=== PATIENT | female | born 1935 | race Caucasian/White ===

== ENCOUNTER 2019-05-05 03:50 | Inpatient (IN) | payer MEDICARE, OTHER ==
[~2019-05-05] VITALS: Ht 170.2 cm; Wt 80.0 kg
[~2019-05-05 03:50] MED LIST: AMLO2.5T78 PO; LEVE500T8 PO; LOSA25TA12 PO; METF-849 PO; SIMV5TAB14 PO
[2019-05-05] MEDS ORDERED: IOHEXOL 100 ML ONE (03:59)
[2019-05-05] MEDS ORDERED: SOD CHLORIDE 0.9% 100 ML ONE (03:59)
--- NOTE | 2019-05-05 04:06 | STROKE ---
Date/Time of Note Date/Time of Note DATE: 05/05/19 TIME: 04:01 Patient Information General Patient location: emergency Arrival Date 05/05/19 Age 83 Gender female Weight 80 kg Vital Signs Vital Signs Vital Signs Date Temp Pulse Resp B/P (MAP) Pulse Ox O2 O2 Flow FiO2 Time Delivery Rate 05/05/19 98.6 69 19 181/88 99 03:56 (119) Patient History Past Medical History Diabetes, Hypertension, Hypercholesterolemia, Seizure Current Medications Allergies: Coded Allergies: Penicillins (Verified Allergy, Unknown, 02/27/15) ciprofloxacin (Verified Allergy, Unknown, 02/27/15) History & Physical History of Present Illness 83 yo F with history of HTN, HL, DB, resides at a long-term, who was LKW 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 Symptoms had improved after CT studies. Review of Systems All Other Systems: Reviewed and Negative NIH Stroke Scale NIH Stroke Scale [id number] l4d LOC Questions: Zaidj6o OC Commands: Atdpd3c Gaze: Oiked5g Bkovh8c alsy: Hxcbc9s rm - Left: Tkwig2s ight: Yepya0x eft: Gkepu1f ight: Caxuk9u Bfakc5o Pzvst1k Ldamo9x fzhj1Zj Dysarthria: Acmze6k ction and Pruhb0l 4Bd Total Score: Rgfgt1u Date/Time Recorded DATE: 05/05/19 TIME: 04:01 Submitted By Olman Tanner [email or web address] Imaging Review Imaging Reviewed: Yes Date/Time Imaging Reviewed DATE: 05/05/19 TIME: 04:01 Imaging Findings no acute processes on CT t-PA Administration Recommendation: No Weight 80 kg Recommedation submitted by Olman Tanner Reason t-PA not Recommended outside time window t-PA Not Recommended Date/Time 05/05/19 4:00 AM Recommendations Impression Diagnosis 83 yo F with htn, hl, db, seizure disorder, LKW 11p on 05/04 and subsequently found with right facial droop and expressive aphasia. Symptoms had improved after returning from CT. NIHSS was 5 and CTH negative for acute processes. TPA was considered but not recommended given that the patient presented outside the eligibility window. Of note, the patient had a similar presentation in the last several months and was presumed TIA. Differential for her encephalopathy includes seizure, toxic/metabolic. Recommendation 1) full medical workup to evaluate for other provoking causes (ie infection including UA, metabolic derangement). 2) Neurology consult to assist with seizure history (per ER provider she is not on AEDs) and consideration for empiric anti-seizure medication. 3) MRI Brain to rule out stroke if symptoms do not improve back to baseline or if no clear provoking causes can be determined. [id number] Diagnostic Labs: Exotp6b Lipid Proile Hgb A1C CBC w/Diff Coags Urinaysis Urine Drug Screen [id number] Therapy: [address] Physical Therapy Speech Therapy Occupational [id number] Recommendations: [address] Bedside Swallow Evaluation Pnumatic Compression Devices OLMAN TANNER MD May 05, 2019 04:06
--- NOTE | 2019-05-05 05:51 | ERD ---
ER Documentation Chief Complaint Chief Complaint BIB R39 FROM [facility]. FACIAL DROOP, APHASIC. HPI This is an 83-year-old female brought in from [facility]. She has facial droop and was a phasic. Last known well time was 11 when she went to bed. She woke up to 130 to go the bathroom was noted to have these findings. Patient is very combative here. According to SNF, patient has had a history of TIA 3 weeks ago. ROS All systems reviewed and are negative except as per history of present illness. Medications Home Meds Reported Medications Simvastatin* (Simvastatin*) 5 Mg Tablet, 5 MG PO HS, TAB 02/27/15 Metformin* (Glucophage*) 500 Mg Tab, 500 MG PO WITH MEALS, TAB 02/27/15 Losartan Potassium* (Losartan Potassium*) 25 Mg Tablet, 25 MG PO DAILY, TAB 02/27/15 Levetiracetam* (Levetiracetam*) 500 Mg Tablet, 500 MG PO BID, TAB 02/27/15 Amlodipine Besylate* (Amlodipine Besylate*) 2.5 Mg Tablet, 2.5 MG PO DAILY, TAB 02/27/15 Allergies Allergies: Coded Allergies: Penicillins (Verified Allergy, Unknown, 02/27/15) ciprofloxacin (Verified Allergy, Unknown, 02/27/15) PMhx/Soc History of Surgery: Yes (Brain surgery Benign tumor 2008) Anesthesia Reaction: Yes Hx Neurological Disorder: No Hx Respiratory Disorders: No Hx Cardiac Disorders: Yes (HTN, Hyperlipdemia, TIA 04/2019) Hx Psychiatric Problems: No Hx Miscellaneous Medical Probl: Yes (Thalassemia) Hx Alcohol Use: No Hx Substance Use: No Hx Tobacco Use: No Smoking Status: Never smoker Physical Exam Vitals Vital Signs Date Temp Pulse Resp B/P (MAP) Pulse Ox O2 O2 Flow FiO2 Time Delivery Rate 05/05/19 66 19 160/73 99 Room Air 04:36 (102) 05/05/19 Nasal 2 04:16 Cannula 05/05/19 98.6 69 19 181/88 99 03:56 (119) Physical Exam Const: No acute distress Head: Atraumatic Eyes: Normal Conjunctiva ENT: Normal External Ears, Nose and Mouth. Neck: Full range of motion. No meningismus. Resp: Clear to auscultation bilaterally Cardio: Regular rate and rhythm, no murmurs Abd: Soft, non tender, non distended. Normal bowel sounds Skin: No petechiae or rashes Back: No midline or flank tenderness Ext: No cyanosis, or edema Neur: Awake and alert Psych: Normal Mood and Affect Result Diagram: 05/05/19 0413 05/05/19 0413 Results 24 hrs Laboratory Tests Test 05/05/19 04:13 White Blood Count 7.1 10^3/ul Red Blood Count 5.23 10^6/ul Hemoglobin 10.8 g/dl Hematocrit 35.1 % Mean Corpuscular Volume 67.1 fl Mean Corpuscular Hemoglobin 20.7 pg Mean Corpuscular Hemoglobin Concent 30.8 g/dl Red Cell Distribution Width 15.4 % Platelet Count 333 10^3/UL Mean Platelet Volume 9.2 fl Immature Granulocytes % 0.400 % Neutrophils % 57.1 % Lymphocytes % 29.5 % Monocytes % 8.4 % Eosinophils % 3.5 % Basophils % 1.1 % Nucleated Red Blood Cells % 0.0 /100WBC Immature Granulocytes # 0.030 10^3/ul Neutrophils # 4.1 10^3/ul Lymphocytes # 2.1 10^3/ul Monocytes # 0.6 10^3/ul Eosinophils # 0.3 10^3/ul Basophils # 0.1 10^3/ul Nucleated Red Blood Cells # 0.0 10^3/ul Prothrombin Time 11.9 Sec Prothrombin Time Ratio 0.9 INR International Normalized Ratio 0.87 Activated Partial Thromboplast Time 28.3 Sec Sodium Level 142 mmol/L Potassium Level 4.5 mmol/L Chloride Level 107 mmol/L Carbon Dioxide Level 25 mmol/L Anion Gap 10 Blood Urea Nitrogen 16 mg/dl Creatinine 0.74 mg/dl Est Glomerular Filtrat Rate mL/min mL/min Glucose Level 169 mg/dl Hemoglobin A1c 6.8 % Calcium Level 9.4 mg/dl Creatine Kinase 33 IU/L Creatine Kinase Index 0.8 Creatinine Kinase MB (Mass) 0.28 ng/ml Troponin I < 0.012 ng/ml Triglycerides Level 158 mg/dl Cholesterol Level 158 mg/dl LDL Cholesterol, Calculated 73 mg/dl HDL Cholesterol 53 mg/dl Cholesterol/HDL Ratio 2.9 RATIO Ethyl Alcohol Level < 10.0 mg/dl Current Medications Medications Dose Sig/Xenia Start Time Status Last (Trade) Ordered Route PRN Stop Time Admin Dose Reason Admin Ondansetron 4 mg ER BRIDGE 05/05/19 HCl (Zofran PRN IV 06:00 Inj) NAUSEA/VOMITI 05/06/19 05:59 NG 650 mg ER BRIDGE 05/05/19 Acetaminophen PRN PO 06:00 (Tylenol .MILD PAIN 05/06/19 05:59 Tab) 1-3 OR TEMP Procedures/MDM EKG: Rate/Rhythm: [Normal Sinus Rhythm] QRS, ST, T-waves: [No changes consistent w/ acute ischemia] Impression: [No evidence of ischemia or arrhythmia]. . Chest X-ray 1V Interpreted by me: Soft Tissue: No acute abnormalities Bones: No acute abnormalities Mediastinum/Cardiac Silhouette/Lungs: [No acute abnormalities] CT head and angiogram negative. Medical decision makin female who has now what looks to be TIA as her symptoms have completely resolved. Patient will be admitted to Dr. Hsu who is on-call. Departure Diagnosis: Primary Impression: TIA (transient ischemic attack) Condition: Serious JYOTI JENNINGS May 05, 2019 05:51
[2019-05-05] MEDS ORDERED: ACETAMINOPHEN 325 MG TAB PO PRN (06:00)
[2019-05-05] MEDS ORDERED: ONDANSETRON 4 MG INJ IV PRN (06:00)
[2019-05-05 08:30] VITALS: BP 158/71; PULSE 65; RESP 18
[2019-05-05] MEDS ORDERED: AMLO5TAB4 PO (08:33)
[2019-05-05] MEDS ORDERED: ACET-2047 PO (08:33)
[2019-05-05] MEDS ORDERED: ATOR10TA65 PO (08:33)
[2019-05-05] MEDS ORDERED: MULTI PO (08:33)
[2019-05-05] MEDS ORDERED: ASPI-903 PO (08:33)
[2019-05-05] MEDS ORDERED: SS SC (08:33)
[2019-05-05] MEDS ORDERED: LOSA100T15 PO (08:33)
[2019-05-05] MEDS ORDERED: SENN-120 PO (08:33)
[2019-05-05] MEDS ORDERED: LEVE500T8 PO (08:33)
[2019-05-05] MEDS ORDERED: GLIP5TAB13 PO (08:33)
[2019-05-05] MEDS ORDERED: ATEN50TA PO (08:33)
[2019-05-05] MEDS ORDERED: DOCU-159 PO (08:33)
[2019-05-05] MEDS ORDERED: METF-730 PO (08:33)
[2019-05-05] MEDS ORDERED: ZOLP5TAB PO (08:33)
[2019-05-05 09:20] VITALS: Ht 170.2 cm; Wt 80.0 kg
[2019-05-05 09:40] VITALS: PULSE 65
[2019-05-05 12:00] VITALS: BP 166/70; PULSE 67; PULSE 68; PULSE 69; RESP 17
[2019-05-05] MEDS ORDERED: DEXTROSE 50% 50 ML SYRINGE IV PRN ×2 (12:00)
[2019-05-05] MEDS ORDERED: ZOLPIDEM 5 MG TAB PO PRN (12:00)
[2019-05-05] MEDS ORDERED: GLUCOSE GEL 15 GRAM TUBE BUCCAL PRN (12:00)
[2019-05-05] MEDS ORDERED: GLUCAGON 1 MG INJ IM PRN (12:00)
[2019-05-05] MEDS ORDERED: GLUCOSE GEL 15 GRAM TUBE PO PRN ×2 (12:00)
--- NOTE | 2019-05-05 12:30 | HP ---
Date/Time of Note Date/Time of Note DATE: 05/05/19 TIME: 12:28 Assessment/Plan VTE Prophylaxis SCD applied (from Nsg): Yes Pharmacological prophylaxis: LMWH Lines/Catheters IV Catheter Type (from Nrsg): Saline Lock Assessment/Plan Assessment/Plan -TIA versus seizure. Rule out acute stroke. CT of the brain is negative for acute stroke. Will obtain MRI of the brain. is asked to see patient in neurology consultation. Continue aspirin and Keppra. -Hypertension, continue Cozaar, Norvasc and atenolol. -Hyperlipidemia, continue statin. -Thalassemia -Hearing impairment -Right breast mass, patient is followed with Dr. Kaden Wilcox with recommendation for a right breast mass biopsy. Further recommendations based on clinical course. Plan of care discussed with Dr. Young. Result Diagram: 05/05/19 0413 05/05/19 0413 Results 24hrs Laboratory Tests Test 05/05/19 04:13 05/05/19 12:17 White Blood Count 7.1 Red Blood Count 5.23 Hemoglobin 10.8 L Hematocrit 35.1 L Mean Corpuscular Volume 67.1 L Mean Corpuscular Hemoglobin 20.7 L Mean Corpuscular Hemoglobin Concent 30.8 L Red Cell Distribution Width 15.4 H Platelet Count 333 Mean Platelet Volume 9.2 Immature Granulocytes % 0.400 Neutrophils % 57.1 Lymphocytes % 29.5 Monocytes % 8.4 Eosinophils % 3.5 Basophils % 1.1 Nucleated Red Blood Cells % 0.0 Immature Granulocytes # 0.030 Neutrophils # 4.1 Lymphocytes # 2.1 Monocytes # 0.6 Eosinophils # 0.3 Basophils # 0.1 Nucleated Red Blood Cells # 0.0 Prothrombin Time 11.9 Prothrombin Time Ratio 0.9 INR International Normalized Ratio 0.87 Activated Partial Thromboplast Time 28.3 Sodium Level 142 Potassium Level 4.5 Chloride Level 107 Carbon Dioxide Level 25 Anion Gap 10 Blood Urea Nitrogen 16 Creatinine 0.74 Est Glomerular Filtrat Rate mL/min Glucose Level 169 Hemoglobin A1c 6.8 H Calcium Level 9.4 Creatine Kinase 33 Creatine Kinase Index 0.8 Creatinine Kinase MB (Mass) 0.28 Troponin I < 0.012 Triglycerides Level 158 H Cholesterol Level 158 LDL Cholesterol, Calculated 73 HDL Cholesterol 53 Cholesterol/HDL Ratio 2.9 Ethyl Alcohol Level < 10.0 H Bedside Glucose 186 HPI/ROS Admit Date/Time Admit Date/Time May 05, 2019 at 05:33 Hx of Present Illness The patient is 83-year-old female with history of surgery in 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 Patient was brought from [facility] for facial droop noticed and patient woke up at 1:30 AM patient went to bed at [address] of the brain which was negative for acute stroke. Patient's symptoms improved after returning from CT scan. Patient was evaluated by tele-neurologist Dr. Tanner. TPA was considered but not recommended given the patient presenting outside the eligibility window. Patient had TIA 3 weeks ago. Patient is admitted for further evaluation and management. During the examination patient is nonverbal and has hearing impairment however follows commands. No fever nausea vomiting, no shortness of breath and no chest pain were reported. ROS 12 point review of system is negative except for what mentioned in HPI PMH/Family/Social Past Medical History Medical History: high cholesterol, hypertension, other (History of TIA, thalassemia) Medications Current Medications Ondansetron HCl (Zofran Inj) 4 mg ER BRIDGE PRN IV NAUSEA/VOMITING; Start 05/05/19 at 06:00; Stop 05/06/19 at 05:59 Acetaminophen (Tylenol Tab) 650 mg ER BRIDGE PRN PO .MILD PAIN 1-3 OR TEMP; Start 05/05/19 at 06:00; Stop 05/06/19 at 05:59 Amlodipine Besylate (Norvasc) 5 mg BID PO ; Start 05/05/19 at 21:00 Aspirin (Aspirin) 81 mg DAILY PO ; Start 05/06/19 at 09:00 Atenolol (Tenormin) 50 mg BID PO ; Start 05/05/19 at 21:00 Atorvastatin Calcium (Lipitor) 10 mg QHS PO ; Start 05/05/19 at 21:00 Docusate Sodium (Colace) 100 mg BID PO ; Start 05/05/19 at 21:00 Levetiracetam (Keppra) 500 mg BID PO ; Start 05/05/19 at 21:00 Losartan Potassium (Cozaar) 100 mg DAILY PO ; Start 05/06/19 at 09:00 Multivitamins Therapeutic (Theragran) 1 tab DAILY PO ; Start 05/06/19 at 09:00 Senna (Senokot) 2 tab QHS PO ; Start 05/05/19 at 21:00 Zolpidem Tartrate (Ambien) 5 mg QHS PRN PO INSOMNIA; Start 05/05/19 at 12:00 Insulin Aspart (Novolog Insulin Pen) NOVOLOG *MILD* ALGORITHM WITH MEALS BEDTIME SC ; Start 05/05/19 at 11:50 Miscellaneous Information 1 ea NOTE XX ; Start 05/05/19 at 12:00 Glucose (Glutose) 15 gm Q15M PRN PO DECREASED GLUCOSE; Start 05/05/19 at 12:00 Glucose (Glutose) 22.5 gm Q15M PRN PO DECREASED GLUCOSE; Start 05/05/19 at 12:00 Dextrose (D50w Syringe) 25 ml Q15M PRN IV DECREASED GLUCOSE; Start 05/05/19 at 12:00 Dextrose (D50w Syringe) 50 ml Q15M PRN IV DECREASED GLUCOSE; Start 05/05/19 at 12:00 Glucagon (Glucagen) 1 mg Q15M PRN IM DECREASED GLUCOSE; Start 05/05/19 at 12:00 Glucose (Glutose) 15 gm Q15M PRN BUCCAL DECREASED GLUCOSE; Start 05/05/19 at 12:00 Coded Allergies: Penicillins (Verified Allergy, Unknown, 05/05/19) ciprofloxacin (Verified Allergy, Unknown, 05/05/19) Past Surgical History Past Surgical Hx: other (Status post brain surgery in 2008, status post right breast lumpectomy) Family History Significant Family History: no pertinent family hx Social History Alcohol Use: none Smoking Status: Never smoker Drug Use: none Exam/Review of Systems Vital Signs Vitals Vital Signs Date Temp Pulse Resp B/P (MAP) Pulse Ox O2 O2 Flow FiO2 Time Delivery Rate 05/05/19 98.2 68 17 166/70 95 12:00 (102) 05/05/19 Room Air 08:18 05/05/19 2 04:16 Exam Constitutional: alert, oriented Head: normocephalic ENMT: other (Hearing impairment) Neck: supple Respiratory: clear to auscultation Cardiovascular: regular rate and rhythm, other (Left Bundle branch block) Gastrointestinal: soft, non-tender Musculoskeletal: nl extremities to inspection Extremities: normal pulses Neurological: nl mental status, other (Expressive aphasia) Skin: nl TROY Sue May 05, 2019 12:30
[2019-05-05] MEDS: INSULIN ASPART [NOVOLOG] 3 ML PEN SC SCH ×3 (12:35→20:55)
--- NOTE | 2019-05-05 15:02 | CONSI ---
Assessment/Plan Assessment/Plan Assessment/Plan (Recall) 83 F c/ prior brain surgery NOS c/b residual aphasia and epilepsy...who presents for evaluation of transient L face weakness. The clinical picture is concerning for TIA/minor stroke vs. seizure w/ post- ictal paresis.. Recrudescence is a Dx of exclusion.. Head CT is notable for surgery sequelae.. CTA H/N is unrevealing. P: Await MRI brain for further characterization Agree w/ asa/lipitor daily for now.. Increase Keppra to 750mg bid for now Ativan iv prn prolonged seizure (> 5 min) Await UA/UDS Other medical management and supportive care per primary Will follow clinically Consultation Date/Type/Reason Admit Date/Time May 05, 2019 at 05:33 Type of Consult Neurology Reason for Consultation transient face weakness Requesting Provider: TROY SILVER Date/Time of Note DATE: 05/05/19 TIME: 14:56 Hx of Present Illness Patient is unable to contribute a Hx.. It is elsewhere noted: The patient is 83-year-old female with history of surgery in 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 P atient was brought from residential facility for facial droop noticed and patient woke up at 1:30 AM patient went to bed at [address] of the brain which was negative for acute stroke. Patient's symptoms improved after returning from CT scan. Patient was evaluated by tele-neurologist Dr. Tanner. TPA was considered but not recommended given the patient presenting outside the eligibility window. Patient had TIA 3 weeks ago. Patient is admitted for further evaluation and management. During the examination patient is nonverbal and has hearing impairment however follows commands. No fever nausea vomiting, no shortness of breath and no chest pain were reported. limited by dysphasia Objective Exam Vitals Vital Signs Date Temp Pulse Resp B/P (MAP) Pulse Ox O2 O2 Flow FiO2 Time Delivery Rate 05/05/19 69 12:00 05/05/19 98.2 17 166/70 95 12:00 (102) 05/05/19 Room Air 08:18 05/05/19 2 04:16 Exam PE: Gen Appearance: No Apparent Distress HEENT: Normocephalic Cardiovascular: Regular rate Lungs: Clear bilaterally Abdomen: Soft Extremities: Dry NE: The patient was alert. Language was notable for fluent dysphasia. Fund of knowledge was [place].. Pupils were equal and reactive to light. There was no afferent pupillary defect. Visual jones were normal. Funduscopic examination was limited. Extra-ocular movements were full. Ptosis was absent. There was no nystagmus. Facial sensation was normal. Face was symmetric with normal strength. Hearing was intact. Palate movements were normal. Neck strength was normal. There was normal tongue bulk and speed of movement. Tone was normal. Muscle bulk was normal. I did not see fasciculations. Arms and legs were strong. Vibration sensation was normal. Temperature and pinprick sensation was normal. Rapid alternating movements were normal. There was no dysmetria. There was no intention tremor. Gait was deferred due to bedrest. Arm and leg reflexes were symmetric. Williamson's sign was absent. Plantar responses were flexor. Results Result Diagram: 05/05/19 0413 05/05/19 0413 Results 24hrs Laboratory Tests Test 05/05/19 04:13 05/05/19 12:17 White Blood Count 7.1 Red Blood Count 5.23 Hemoglobin 10.8 L Hematocrit 35.1 L Mean Corpuscular Volume 67.1 L Mean Corpuscular Hemoglobin 20.7 L Mean Corpuscular Hemoglobin Concent 30.8 L Red Cell Distribution Width 15.4 H Platelet Count 333 Mean Platelet Volume 9.2 Immature Granulocytes % 0.400 Neutrophils % 57.1 Lymphocytes % 29.5 Monocytes % 8.4 Eosinophils % 3.5 Basophils % 1.1 Nucleated Red Blood Cells % 0.0 Immature Granulocytes # 0.030 Neutrophils # 4.1 Lymphocytes # 2.1 Monocytes # 0.6 Eosinophils # 0.3 Basophils # 0.1 Nucleated Red Blood Cells # 0.0 Prothrombin Time 11.9 Prothrombin Time Ratio 0.9 INR International Normalized Ratio 0.87 Activated Partial Thromboplast Time 28.3 Sodium Level 142 Potassium Level 4.5 Chloride Level 107 Carbon Dioxide Level 25 Anion Gap 10 Blood Urea Nitrogen 16 Creatinine 0.74 Est Glomerular Filtrat Rate mL/min Glucose Level 169 Hemoglobin A1c 6.8 H Calcium Level 9.4 Creatine Kinase 33 Creatine Kinase Index 0.8 Creatinine Kinase MB (Mass) 0.28 Troponin I < 0.012 Triglycerides Level 158 H Cholesterol Level 158 LDL Cholesterol, Calculated 73 HDL Cholesterol 53 Cholesterol/HDL Ratio 2.9 Ethyl Alcohol Level < 10.0 H Bedside Glucose 186 Past Medical History Medical History: high cholesterol, hypertension, other (History of TIA, thalassemia) Home Meds Reported Medications Sennosides* (Senna Lax*) 8.6 Mg Tablet, 2 TAB PO QHS, TAB 05/05/19 Multivitamins* (Theragran*) 1 Tab Tab, 1 TAB PO DAILY, TAB 05/05/19 Metformin HCl (Metformin HCl ER) 500 Mg [id number], 500 MG PO, TAB 05/05/19 Losartan Potassium* (Losartan Potassium*) 100 Mg Tablet, 100 MG PO DAILY, TAB 05/05/19 Atorvastatin Calcium (Atorvastatin Calcium) 10 Mg Tablet, 10 MG PO QHS, #30 TAB 05/05/19 Levetiracetam* (Levetiracetam*) 500 Mg Tablet, 500 MG PO BID, TAB 05/05/19 Insulin Human Regular (Novolin-R U-100) 100 Unit/Ml Soln, 0-12 UNITS SC PER SLID ING SCALE, EA 05/05/19 Glipizide* (Glipizide*) 5 Mg Tablet, 2.5 MG PO AC BREAKFAST BEDTIME, TAB 05/05/19 Docusate Sodium* (Docusate Sodium*) 100 Mg Capsule, 100 MG PO BID, #60 CAP 05/05/19 Atenolol* (Atenolol*) 50 Mg Tablet, 50 MG PO BID, #60 TAB 05/05/19 Aspirin* (Aspirin* Chew) 81 Mg Tab.chew, 81 MG PO DAILY, TAB.CHEW 05/05/19 Amlodipine Besylate* (Norvasc*) 5 Mg Tablet, 5 MG PO BID, TAB 05/05/19 Zolpidem Tartrate* (Ambien*) 5 Mg Tablet, 5 MG PO QHS PRN for INSOMNIA, #30 TAB 05/05/19 Acetaminophen* (Acetaminophen*) 650 Mg Tablet, 650 MG PO Q6H PRN for PAIN AND OR ELEVATED TEMP, #30 TAB 05/05/19 Discontinued Reported Medications Simvastatin* (Simvastatin*) 5 Mg Tablet, 5 MG PO HS, TAB 02/27/15 Metformin* (Glucophage*) 500 Mg Tab, 500 MG PO WITH MEALS, TAB 02/27/15 Losartan Potassium* (Losartan Potassium*) 25 Mg Tablet, 25 MG PO DAILY, TAB 02/27/15 Levetiracetam* (Levetiracetam*) 500 Mg Tablet, 500 MG PO BID, TAB 02/27/15 Amlodipine Besylate* (Amlodipine Besylate*) 2.5 Mg Tablet, 2.5 MG PO DAILY, TAB 02/27/15 Medications Current Medications Ondansetron HCl (Zofran Inj) 4 mg ER BRIDGE PRN IV NAUSEA/VOMITING; Start 05/05/19 at 06:00; Stop 05/06/19 at 05:59 Acetaminophen (Tylenol Tab) 650 mg ER BRIDGE PRN PO .MILD PAIN 1-3 OR TEMP; Start 05/05/19 at 06:00; Stop 05/06/19 at 05:59 Amlodipine Besylate (Norvasc) 5 mg BID PO ; Start 05/05/19 at 21:00 Aspirin (Aspirin) 81 mg DAILY PO ; Start 05/06/19 at 09:00 Atenolol (Tenormin) 50 mg BID PO ; Start 05/05/19 at 21:00 Atorvastatin Calcium (Lipitor) 10 mg QHS PO ; Start 05/05/19 at 21:00 Docusate Sodium (Colace) 100 mg BID PO ; Start 05/05/19 at 21:00 Levetiracetam (Keppra) 500 mg BID PO ; Start 05/05/19 at 21:00 Losartan Potassium (Cozaar) 100 mg DAILY PO ; Start 05/06/19 at 09:00 Multivitamins Therapeutic (Theragran) 1 tab DAILY PO ; Start 05/06/19 at 09:00 Senna (Senokot) 2 tab QHS PO ; Start 05/05/19 at 21:00 Zolpidem Tartrate (Ambien) 5 mg QHS PRN PO INSOMNIA; Start 05/05/19 at 12:00 Insulin Aspart (Novolog Insulin Pen) NOVOLOG *MILD* ALGORITHM WITH MEALS BEDTIME SC Last administered on 05/05/19at 12:35; Admin Dose 2 UNIT; Start 05/05/19 at 11:50 Miscellaneous Information 1 ea NOTE XX ; Start 05/05/19 at 12:00 Glucose (Glutose) 15 gm Q15M PRN PO DECREASED GLUCOSE; Start 05/05/19 at 12:00 Glucose (Glutose) 22.5 gm Q15M PRN PO DECREASED GLUCOSE; Start 05/05/19 at 12:00 Dextrose (D50w Syringe) 25 ml Q15M PRN IV DECREASED GLUCOSE; Start 05/05/19 at 12:00 Dextrose (D50w Syringe) 50 ml Q15M PRN IV DECREASED GLUCOSE; Start 05/05/19 at 12:00 Glucagon (Glucagen) 1 mg Q15M PRN IM DECREASED GLUCOSE; Start 05/05/19 at 12:00 Glucose (Glutose) 15 gm Q15M PRN BUCCAL DECREASED GLUCOSE; Start 05/05/19 at 12:00 Glipizide (Glucotrol) 2.5 mg AC BREAKFAST PO ; Start 05/06/19 at 07:25 Allergies: Coded Allergies: Penicillins (Verified Allergy, Unknown, 05/05/19) ciprofloxacin (Verified Allergy, Unknown, 05/05/19) Past Surgical History Past Surgical Hx: other (Status post brain surgery in 2008, status post right breast lumpectomy) Social History Alcohol Use: none Smoking Status: Never smoker Drug Use: none KAROL SANCHEZ May 05, 2019 15:02
[2019-05-05 16:00] VITALS: BP 170/70; PULSE 61; PULSE 67; RESP 21
[2019-05-05] MEDS: LEVETIRACETAM 750 MG TAB PO SCH (16:26)
[2019-05-05 20:00] VITALS: PULSE 69
[2019-05-05 20:19] VITALS: BP 166/80; PULSE 69; RESP 19
[2019-05-05] MEDS: SENNA TAB PO SCH (20:51)
[2019-05-05] MEDS: ATENOLOL 50 MG TAB PO SCH (20:52)
[2019-05-05] MEDS: ATORVASTATIN 10 MG TAB PO SCH (20:52)
[2019-05-05] MEDS: AMLODIPINE 5 MG TAB PO SCH (20:52)
[2019-05-05] MEDS: DOCUSATE SODIUM 100 MG CAP PO SCH (20:53)
[2019-05-05] MEDS ORDERED: LEVETIRACETAM 750 MG TAB PO SCH (21:00)
[2019-05-05] MEDS ORDERED: LEVETIRACETAM 500 MG TAB PO SCH (21:00)
[2019-05-06] VITALS (11 sets, daily range): BP systolic 121–148; BP diastolic 60–70; PULSE 62–80; RESP 18–19
[2019-05-06] MEDS: LEVETIRACETAM 750 MG TAB PO SCH ×3 (01:53→20:29)
[2019-05-06] MEDS: INSULIN ASPART [NOVOLOG] 3 ML PEN SC SCH ×4 (08:34→20:26)
[2019-05-06] MEDS: DOCUSATE SODIUM 100 MG CAP PO SCH ×2 (08:46→20:28)
[2019-05-06] MEDS: ASPIRIN 81 MG TAB PO SCH (08:46)
[2019-05-06] MEDS: AMLODIPINE 5 MG TAB PO SCH ×2 (08:47→20:28)
[2019-05-06] MEDS: MULTIVITAMINS THERAPEUTIC TAB PO SCH (08:47)
[2019-05-06] MEDS: ATENOLOL 50 MG TAB PO SCH ×2 (08:47→20:28)
[2019-05-06] MEDS: LOSARTAN 50 MG TAB PO SCH (08:47)
[2019-05-06] MEDS: glipiZIDE 5 MG TAB PO SCH (08:51)
--- NOTE | 2019-05-06 12:51 | PN ---
Date/Time of Note Date/Time of Note DATE: 05/06/19 TIME: 12:42 Assessment/Plan VTE Prophylaxis Risk score (from Nsg)>0 risk: 3 SCD applied (from Nsg): Yes Pharmacological prophylaxis: LMWH Lines/Catheters IV Catheter Type (from Nrsg): Peripheral IV Assessment/Plan Hospital Course Patient is awake alert, denies any pain no seizure reported per nursing staff, continue physical therapy. Assessment/Plan -TIA versus seizure. CT of the brain is negative for acute stroke. MRI of the brain is negative for acute stroke. is asked to see patient in neurology consultation. Continue aspirin and Keppra. -Hypertension, continue Cozaar, Norvasc and atenolol. -Hyperlipidemia, continue statin. -Thalassemia -Hearing impairment -Right breast mass, patient underwent recent ultrasound at [facility] with no evidence for breast mass per Dr Barrett. Further recommendations based on clinical course. Plan of care discussed with Dr. Young. Result Diagram: 05/06/19 0558 05/06/19 0558 Results 24hrs Laboratory Tests Test 05/05/19 20:20 05/06/19 05:58 05/06/19 08:27 05/06/19 10:45 Bedside Glucose 200 154 White Blood Count 6.3 Red Blood Count 5.22 Hemoglobin 10.6 L Hematocrit 34.9 L Mean Corpuscular 66.9 L Volume Mean Corpuscular 20.3 L Hemoglobin Mean Corpuscular 30.4 L Hemoglobin Concent Red Cell 15.7 H Distribution Width Platelet Count 333 Mean Platelet Volume 9.7 Immature 0.500 H Granulocytes % Neutrophils % 57.7 Lymphocytes % 30.4 Monocytes % 8.4 Eosinophils % 2.2 Basophils % 0.8 Nucleated Red Blood 0.0 Cells % Immature 0.030 Granulocytes # Neutrophils # 3.6 Lymphocytes # 1.9 Monocytes # 0.5 Eosinophils # 0.1 Basophils # 0.1 Nucleated Red Blood 0.0 Cells # Sodium Level 139 Potassium Level 4.0 Chloride Level 102 Carbon Dioxide Level 26 Anion Gap 11 Blood Urea Nitrogen 13 Creatinine 0.68 Est Glomerular Filtrat Rate mL/min Glucose Level 140 Calcium Level 8.4 Prothrombin Time 12.7 Prothrombin Time 1.0 Ratio INR International 0.94 Normalized Ratio Test 05/06/19 12:06 Bedside Glucose 274 H Exam/Review of Systems Exam Vitals Vital Signs Date Temp Pulse Resp B/P (MAP) Pulse Ox O2 O2 Flow FiO2 Time Delivery Rate 05/06/19 63 12:13 05/06/19 97.8 18 127/60 98 11:59 (82) 05/05/19 Room Air 08:18 05/05/19 2 04:16 Intake and Output 05/05/19 05/05/19 05/06/19 1515:00 23:00 07:00 IntakeIntake Total 480 ml 300 ml BalanceBalance 480 ml 300 ml Exam Constitutional: alert, oriented Head: normocephalic ENMT: other (Hearing impairment) Neck: supple Respiratory: clear to auscultation Cardiovascular: regular rate and rhythm, other (Left Bundle branch block) Gastrointestinal: soft, non-tender Musculoskeletal: nl extremities to inspection Extremities: normal pulses Neurological: nl mental status, other (Expressive aphasia) Skin: nl turgor Results Results 24hrs Laboratory Tests Test 05/05/19 20:20 05/06/19 05:58 05/06/19 08:27 05/06/19 10:45 Bedside Glucose 200 154 White Blood Count 6.3 Red Blood Count 5.22 Hemoglobin 10.6 L Hematocrit 34.9 L Mean Corpuscular 66.9 L Volume Mean Corpuscular 20.3 L Hemoglobin Mean Corpuscular 30.4 L Hemoglobin Concent Red Cell 15.7 H Distribution Width Platelet Count 333 Mean Platelet Volume 9.7 Immature 0.500 H Granulocytes % Neutrophils % 57.7 Lymphocytes % 30.4 Monocytes % 8.4 Eosinophils % 2.2 Basophils % 0.8 Nucleated Red Blood 0.0 Cells % Immature 0.030 Granulocytes # Neutrophils # 3.6 Lymphocytes # 1.9 Monocytes # 0.5 Eosinophils # 0.1 Basophils # 0.1 Nucleated Red Blood 0.0 Cells # Sodium Level 139 Potassium Level 4.0 Chloride Level 102 Carbon Dioxide Level 26 Anion Gap 11 Blood Urea Nitrogen 13 Creatinine 0.68 Est Glomerular Filtrat Rate mL/min Glucose Level 140 Calcium Level 8.4 Prothrombin Time 12.7 Prothrombin Time 1.0 Ratio INR International 0.94 Normalized Ratio Test 05/06/19 12:06 Bedside Glucose 274 H Medications Medication Current Medications Amlodipine Besylate (Norvasc) 5 mg BID PO Last administered on 05/06/19at 08:47; Admin Dose 5 MG; Start 05/05/19 at 21:00 Aspirin (Aspirin) 81 mg DAILY PO Last administered on 05/06/19at 08:46; Admin Dose 81 MG; Start 05/06/19 at 09:00 Atenolol (Tenormin) 50 mg BID PO Last administered on 05/06/19at 08:47; Admin Dose 50 MG; Start 05/05/19 at 21:00 Atorvastatin Calcium (Lipitor) 10 mg QHS PO Last administered on 05/05/19at 20:52; Admin Dose 10 MG; Start 05/05/19 at 21:00 Docusate Sodium (Colace) 100 mg BID PO Last administered on 05/06/19 08:46; Admin Dose 100 MG; Start 05/05/19 at 21:00 Losartan Potassium (Cozaar) 100 mg DAILY PO Last administered on 05/06/19 08:47; Admin Dose 100 MG; Start 05/06/19 at 09:00 Multivitamins Therapeutic (Theragran) 1 tab DAILY PO Last administered on 05/06/19 08:47; Admin Dose 1 TAB; Start 05/06/19 at 09:00 Senna (Senokot) 2 tab QHS PO Last administered on 05/05/19at 20:51; Admin Dose 2 TAB; Start 05/05/19 at 21:00 Zolpidem Tartrate (Ambien) 5 mg QHS PRN PO INSOMNIA; Start 05/05/19 at 12:00 Insulin Aspart (Novolog Insulin Pen) NOVOLOG *MILD* ALGORITHM WITH MEALS BEDTIME SC Last administered on 05/06/19at 12:14; Admin Dose 4 UNIT; Start 05/05/19 at 11:50 Miscellaneous Information 1 ea NOTE XX ; Start 05/05/19 at 12:00 Glucose (Glutose) 15 gm Q15M PRN PO DECREASED GLUCOSE; Start 05/05/19 at 12:00 Glucose (Glutose) 22.5 gm Q15M PRN PO DECREASED GLUCOSE; Start 05/05/19 at 12:00 Dextrose (D50w Syringe) 25 ml Q15M PRN IV DECREASED GLUCOSE; Start 05/05/19 at 12:00 Dextrose (D50w Syringe) 50 ml Q15M PRN IV DECREASED GLUCOSE; Start 05/05/19 at 12:00 Glucagon (Glucagen) 1 mg Q15M PRN IM DECREASED GLUCOSE; Start 05/05/19 at 12:00 Glucose (Glutose) 15 gm Q15M PRN BUCCAL DECREASED GLUCOSE; Start 05/05/19 at 12:00 Glipizide (Glucotrol) 2.5 mg AC BREAKFAST PO Last administered on 05/06/19at 08:51; Admin Dose 2.5 MG; Start 05/06/19 at 07:25 Levetiracetam (Keppra) 750 mg BID PO Last administered on 05/06/19at 08:47; Admin Dose 750 MG; Start 05/05/19 at 17:00 TROY SILVER May 06, 2019 12:51
--- NOTE | 2019-05-06 13:22 | CONS ---
Assessment/Plan Assessment/Plan Assessment/Plan (Recall) 83 F c/ prior brain surgery NOS c/b residual aphasia and epilepsy...who presents for evaluation of transient L face weakness. The clinical picture could be consistent w/ post-ictal paresis.. Recrudescence is an alternative consideration.. MRI brain is reassuringly without obvious acute intracranial pathology. CTA H/N is unrevealing. P: Await UA/UDS Agree w/ asa/lipitor daily Continue increased Keppra indefinitely: 750mg bid Ativan iv prn prolonged seizure (> 5 min) Other medical management and supportive care per primary Consultation Date/Type/Reason Admit Date/Time May 06, 2019 at 09:44 Type of Consult Neurology Reason for Consultation transient face weakness Requesting Provider: TROY SILVER Date/Time of Note DATE: 05/06/19 TIME: 13:20 24 HR Interval Summary Free Text/Dictation s/p MRI brain Exam/Review of Systems Exam Vitals Vital Signs Date Temp Pulse Resp B/P (MAP) Pulse Ox O2 O2 Flow FiO2 Time Delivery Rate 05/06/19 63 12:13 05/06/19 97.8 18 127/60 98 11:59 (82) 05/05/19 Room Air 08:18 05/05/19 2 04:16 Intake and Output 05/05/19 05/05/19 05/06/19 1515:00 23:00 07:00 IntakeIntake Total 480 ml 300 ml BalanceBalance 480 ml 300 ml Results Result Diagram: 05/06/19 0558 05/06/19 0558 Results 24hrs Laboratory Tests Test 05/05/19 20:20 05/06/19 05:58 05/06/19 08:27 05/06/19 10:45 Bedside Glucose 200 154 White Blood Count 6.3 Red Blood Count 5.22 Hemoglobin 10.6 L Hematocrit 34.9 L Mean Corpuscular 66.9 L Volume Mean Corpuscular 20.3 L Hemoglobin Mean Corpuscular 30.4 L Hemoglobin Concent Red Cell 15.7 H Distribution Width Platelet Count 333 Mean Platelet Volume 9.7 Immature 0.500 H Granulocytes % Neutrophils % 57.7 Lymphocytes % 30.4 Monocytes % 8.4 Eosinophils % 2.2 Basophils % 0.8 Nucleated Red Blood 0.0 Cells % Immature 0.030 Granulocytes # Neutrophils # 3.6 Lymphocytes # 1.9 Monocytes # 0.5 Eosinophils # 0.1 Basophils # 0.1 Nucleated Red Blood 0.0 Cells # Sodium Level 139 Potassium Level 4.0 Chloride Level 102 Carbon Dioxide Level 26 Anion Gap 11 Blood Urea Nitrogen 13 Creatinine 0.68 Est Glomerular Filtrat Rate mL/min Glucose Level 140 Calcium Level 8.4 Prothrombin Time 12.7 Prothrombin Time 1.0 Ratio INR International 0.94 Normalized Ratio Test 05/06/19 12:06 Bedside Glucose 274 H Medications Medication Current Medications Amlodipine Besylate (Norvasc) 5 mg BID PO Last administered on 05/06/19 08:47; Admin Dose 5 MG; Start 05/05/19 at 21:00 Aspirin (Aspirin) 81 mg DAILY PO Last administered on 05/06/19 08:46; Admin Dose 81 MG; Start 05/06/19 at 09:00 Atenolol (Tenormin) 50 mg BID PO Last administered on 05/06/19 08:47; Admin Dose 50 MG; Start 05/05/19 at 21:00 Atorvastatin Calcium (Lipitor) 10 mg QHS PO Last administered on 05/05/19 20:52; Admin Dose 10 MG; Start 05/05/19 at 21:00 Docusate Sodium (Colace) 100 mg BID PO Last administered on 05/06/19 08:46; Admin Dose 100 MG; Start 05/05/19 at 21:00 Losartan Potassium (Cozaar) 100 mg DAILY PO Last administered on 05/06/19 08:47; Admin Dose 100 MG; Start 05/06/19 at 09:00 Multivitamins Therapeutic (Theragran) 1 tab DAILY PO Last administered on 05/06/19 08:47; Admin Dose 1 TAB; Start 05/06/19 at 09:00 Senna (Senokot) 2 tab QHS PO Last administered on 05/05/19 20:51; Admin Dose 2 TAB; Start 05/05/19 at 21:00 Zolpidem Tartrate (Ambien) 5 mg QHS PRN PO INSOMNIA; Start 05/05/19 at 12:00 Insulin Aspart (Novolog Insulin Pen) NOVOLOG *MILD* ALGORITHM WITH MEALS BEDTIME SC Last administered on 05/06/19at 12:14; Admin Dose 4 UNIT; Start 05/05/19 at 11:50 Miscellaneous Information 1 ea NOTE XX ; Start 05/05/19 at 12:00 Glucose (Glutose) 15 gm Q15M PRN PO DECREASED GLUCOSE; Start 05/05/19 at 12:00 Glucose (Glutose) 22.5 gm Q15M PRN PO DECREASED GLUCOSE; Start 05/05/19 at 1 2:00 Dextrose (D50w Syringe) 25 ml Q15M PRN IV DECREASED GLUCOSE; Start 05/05/19 at 12:00 Dextrose (D50w Syringe) 50 ml Q15M PRN IV DECREASED GLUCOSE; Start 05/05/19 at 12:00 Glucagon (Glucagen) 1 mg Q15M PRN IM DECREASED GLUCOSE; Start 05/05/19 at 12:00 Glucose (Glutose) 15 gm Q15M PRN BUCCAL DECREASED GLUCOSE; Start 05/05/19 at 12:00 Glipizide (Glucotrol) 2.5 mg AC BREAKFAST PO Last administered on 05/06/19at 08:51; Admin Dose 2.5 MG; Start 05/06/19 at 07:25 Levetiracetam (Keppra) 750 mg BID PO Last administered on 05/06/19at 08:47; Admin Dose 750 MG; Start 05/05/19 at 17:00 KAROL SANCHEZ May 06, 2019 13:22
[2019-05-06] MEDS: ATORVASTATIN 10 MG TAB PO SCH (20:27)
[2019-05-06] MEDS: SENNA TAB PO SCH (20:29)
[2019-05-07] VITALS (11 sets, daily range): BP systolic 117–152; BP diastolic 59–70; PULSE 53–71; RESP 18–20
[2019-05-07] MEDS: LEVETIRACETAM 750 MG TAB PO SCH ×2 (08:12→20:53)
[2019-05-07] MEDS: DOCUSATE SODIUM 100 MG CAP PO SCH ×2 (08:12→20:53)
[2019-05-07] MEDS: glipiZIDE 5 MG TAB PO SCH (08:12)
[2019-05-07] MEDS: MULTIVITAMINS THERAPEUTIC TAB PO SCH (08:12)
[2019-05-07] MEDS: AMLODIPINE 5 MG TAB PO SCH ×2 (08:12→20:55)
[2019-05-07] MEDS: LOSARTAN 50 MG TAB PO SCH (08:13)
[2019-05-07] MEDS: ASPIRIN 81 MG TAB PO SCH (08:13)
[2019-05-07] MEDS: ATENOLOL 50 MG TAB PO SCH ×2 (08:14→20:55)
[2019-05-07] MEDS: INSULIN ASPART [NOVOLOG] 3 ML PEN SC SCH ×4 (08:14→20:57)
[2019-05-07] MEDS ORDERED: PHENYTOIN 1,250 MG in SOD CHLORIDE 0.9% 150 ML IV STA (11:17)
--- NOTE | 2019-05-07 12:57 | CONS ---
Assessment/Plan Assessment/Plan Assessment/Plan (Recall) 83 F c/ prior brain surgery NOS c/b residual aphasia and epilepsy...who presents for evaluation of transient L face weakness. The clinical picture is consistent w/ post-ictal paresis.. MRI brain is reassuringly without obvious acute intracranial pathology. CTA H/N is unrevealing. P: Add LFTs; Start Dilantin, to be titrated as needed to goal level 10-20 Continue increased Keppra indefinitely: 750mg bid Ativan iv prn prolonged seizure (> 5 min) OK to continue asa/lipitor for secondary stroke prevention Other medical management and supportive care per primary Consultation Date/Type/Reason Admit Date/Time May 06, 2019 at 09:44 Type of Consult Neurology Reason for Consultation transient face weakness Requesting Provider: TROY SILVER Date/Time of Note DATE: 05/07/19 TIME: 12:56 24 HR Interval Summary Free Text/Dictation Episodic face weakness noted Exam/Review of Systems Exam Vitals Vital Signs Date Temp Pulse Resp B/P (MAP) Pulse Ox O2 O2 Flow FiO2 Time Delivery Rate 05/07/19 97.9 62 20 152/70 95 Room Air 11:25 (97) 05/05/19 2 04:16 Intake and Output 05/06/19 05/06/19 05/07/19 1515:00 23:00 07:00 IntakeIntake Total 720 ml 350 ml BalanceBalance 720 ml 350 ml Results Result Diagram: 05/06/19 0558 05/06/19 0558 Results 24hrs Laboratory Tests Test 05/06/19 17:37 05/06/19 20:25 05/07/19 08:07 Bedside Glucose 119 172 176 Medications Medication Current Medications Amlodipine Besylate (Norvasc) 5 mg BID PO Last administered on 05/07/19at 08:12; Admin Dose 5 MG; Start 05/05/19 at 21:00 Aspirin (Aspirin) 81 mg DAILY PO Last administered on 05/07/19at 08:13; Admin Dose 81 MG; Start 05/06/19 at 09:00 Atenolol (Tenormin) 50 mg BID PO Last administered on 05/07/19at 08:14; Admin Dose 50 MG; Start 05/05/19 at 21:00 Atorvastatin Calcium (Lipitor) 10 mg QHS PO Last administered on 05/06/19at 20:27; Admin Dose 10 MG; Start 05/05/19 at 21:00 Docusate Sodium (Colace) 100 mg BID PO Last administered on 05/07/19at 08:12; Admin Dose 100 MG; Start 05/05/19 at 21:00 Losartan Potassium (Cozaar) 100 mg DAILY PO Last administered on 05/07/19 08:13; Admin Dose 100 MG; Start 05/06/19 at 09:00 Multivitamins Therapeutic (Theragran) 1 tab DAILY PO Last administered on 05/07/19 08:12; Admin Dose 1 TAB; Start 05/06/19 at 09:00 Senna (Senokot) 2 tab QHS PO Last administered on 05/06/19 20:29; Admin Dose 2 TAB; Start 05/05/19 at 21:00 Zolpidem Tartrate (Ambien) 5 mg QHS PRN PO INSOMNIA; Start 05/05/19 at 12:00 Insulin Aspart (Novolog Insulin Pen) NOVOLOG *MILD* ALGORITHM WITH MEALS BED TIME SC Last administered on 05/07/19at 08:14; Admin Dose 1 UNIT; Start 05/05/19 at 11:50 Miscellaneous Information 1 ea NOTE XX ; Start 05/05/19 at 12:00 Glucose (Glutose) 15 gm Q15M PRN PO DECREASED GLUCOSE; Start 05/05/19 at 12:00 Glucose (Glutose) 22.5 gm Q15M PRN PO DECREASED GLUCOSE; Start 05/05/19 at 12:00 Dextrose (D50w Syringe) 25 ml Q15M PRN IV DECREASED GLUCOSE; Start 05/05/19 at 12:00 Dextrose (D50w Syringe) 50 ml Q15M PRN IV DECREASED GLUCOSE; Start 05/05/19 at 12:00 Glucagon (Glucagen) 1 mg Q15M PRN IM DECREASED GLUCOSE; Start 05/05/19 at 12:00 Glucose (Glutose) 15 gm Q15M PRN BUCCAL DECREASED GLUCOSE; Start 05/05/19 at 12:00 Glipizide (Glucotrol) 2.5 mg AC BREAKFAST PO Last administered on 05/07/19at 08:12; Admin Dose 2.5 MG; Start 05/06/19 at 07:25 Levetiracetam (Keppra) 750 mg BID PO Last administered on 05/07/19at 08:12; Admin Dose 750 MG; Start 05/05/19 at 17:00 Phenytoin (Dilantin) 100 mg TID PO ; Start 05/07/19 at 21:00 KAROL SANCHEZ 19, 2019 12:57
--- NOTE | 2019-05-07 16:01 | PN ---
Date/Time of Note Date/Time of Note DATE: 05/07/19 TIME: 15:44 Assessment/Plan VTE Prophylaxis Risk score (from Ns)>0 risk: 3 SCD applied (from Nsg): Yes Pharmacological prophylaxis: other Lines/Catheters IV C[facility] Type (from [facility]): Peripheral IV Assessment/Plan Hospital Course Patient with breakthrough seizures, started on IV Dilantin today, patient's condition plan of care discussed with Dr. Granda, neurology consult is appreciated. Continue telemetry monitoring, seizure precautions. Assessment/Plan -Epilepsy, continue p.o. Keppra at increased dose, IV Dilantin, Ativan as needed -Post ictal paresis. CT of the brain is negative for acute stroke. MRI of the brain is negative for acute stroke. is following in neurology consultation. Continue aspirin and Keppra. -Hypertension, continue Cozaar, Norvasc and atenolol. -Hyperlipidemia, continue statin. -Thalassemia -Hearing impairment -History of brain surgery with residual aphasia and epilepsy -Right breast mass, patient underwent recent ultrasound at [facility] with no evidence for breast mass per Dr Barrett. Further recommendations based on clinical course. Plan of care discussed with Dr. Young. Result Diagram: 05/06/19 0558 05/06/19 0558 Results 24hrs Laboratory Tests Test 05/06/19 17:37 05/06/19 20:25 05/07/19 08:07 05/07/19 13:23 Bedside Glucose 119 172 176 232 H Test 05/07/19 14:29 Phenytoin (Dilantin) 18.5 Level Exam/Review of Systems Exam Vitals Vital Signs Date Temp Pulse Resp B/P (MAP) Pulse Ox O2 O2 Flow FiO2 Time Delivery Rate 05/07/19 62 12:00 05/07/19 97.9 20 152/70 95 Room Air 11:25 (97) 05/05/19 2 04:16 Intake and Output 05/06/19 05/06/19 05/07/19 1515:00 23:00 07:00 IntakeIntake Total 720 ml 350 ml BalanceBalance 720 ml 350 ml Exam Constitutional: alert, oriented Head: normocephalic ENMT: other (Hearing impairment) Neck: supple Respiratory: clear to auscultation Cardiovascular: regular rate and rhythm, other (Left Bundle branch block) Gastrointestinal: soft, non-tender Musculoskeletal: nl extremities to inspection Extremities: normal pulses Neurological: nl mental status, other (Expressive aphasia) Skin: nl turgor Results Results 24hrs Laboratory Tests Test 05/06/19 17:37 05/06/19 20:25 05/07/19 08:07 05/07/19 13:23 Bedside Glucose 119 172 176 232 H Test 05/07/19 14:29 Phenytoin (Dilantin) 18.5 Level Medications Medication Current Medications Amlodipine Besylate (Norvasc) 5 mg BID PO Last administered on 05/07/19 08:12; Admin Dose 5 MG; Start 05/05/19 at 21:00 Aspirin (Aspirin) 81 mg DAILY PO Last administered on 05/07/19 08:13; Admin Dose 81 MG; Start 05/06/19 at 09:00 Atenolol (Tenormin) 50 mg BID PO Last administered on 05/07/19 08:14; Admin Dose 50 MG; Start 05/05/19 at 21:00 Atorvastatin Calcium (Lipitor) 10 mg QHS PO Last administered on 05/06/19 20:27; Admin Dose 10 MG; Start 05/05/19 at 21:00 Docusate Sodium (Colace) 100 mg BID PO Last administered on 05/07/19 08:12; Admin Dose 100 MG; Start 05/05/19 at 21:00 Losartan Potassium (Cozaar) 100 mg DAILY PO Last administered on 05/07/19 08:13; Admin Dose 100 MG; Start 05/06/19 at 09:00 Multivitamins Therapeutic (Theragran) 1 tab DAILY PO Last administered on 05/07/19 08:12; Admin Dose 1 TAB; Start 05/06/19 at 09:00 Senna (Senokot) 2 tab QHS PO Last administered on 05/06/19 20:29; Admin Dose 2 TAB; Start 05/05/19 at 21:00 Zolpidem Tartrate (Ambien) 5 mg QHS PRN PO INSOMNIA; Start 05/05/19 at 12:00 Insulin Aspart (Novolog Insulin Pen) NOVOLOG *MILD* ALGORITHM WITH MEALS BEDTIME SC Last administered on 05/07/19 13:30; Admin Dose 3 UNIT; Start 05/05/19 at 11:50 Miscellaneous Information 1 ea NOTE XX ; Start 05/05/19 at 12:00 Glucose (Glutose) 15 gm Q15M PRN PO DECREASED GLUCOSE; Start 05/05/19 at 12:00 Glucose (Glutose) 22.5 gm Q15M PRN PO DECREASED GLUCOSE; Start 05/05/19 at 12:00 Dextrose (D50w Syringe) 25 ml Q15M PRN IV DECREASED GLUCOSE; Start 05/05/19 at 12:00 Dextrose (D50w Syringe) 50 ml Q15M PRN IV DECREASED GLUCOSE; Start 05/05/19 at 12:00 Glucagon (Glucagen) 1 mg Q15M PRN IM DECREASED GLUCOSE; Start 05/05/19 at 12:00 Glucose (Glutose) 15 gm Q15M PRN BUCCAL DECREASED GLUCOSE; Start 05/05/19 at 12:00 Glipizide (Glucotrol) 2.5 mg AC BREAKFAST PO Last administered on 05/07/19at 08:12; Admin Dose 2.5 MG; Start 05/06/19 at 07:25 Levetiracetam (Keppra) 750 mg BID PO Last administered on 05/07/19at 08:12; Admin Dose 750 MG; Start 05/05/19 at 17:00 Phenytoin (Dilantin) 100 mg TID PO ; Start 05/07/19 at 21:00 TROY SILVER May 07, 2019 16:00
[2019-05-07] MEDS: ATORVASTATIN 10 MG TAB PO SCH (20:53)
[2019-05-07] MEDS: SENNA TAB PO SCH (20:54)
[2019-05-07] MEDS: PHENYTOIN 100 MG CAP PO SCH (20:54)
[2019-05-08] VITALS (13 sets, daily range): BP systolic 133–168; BP diastolic 60–92; PULSE 57–72; RESP 18–20
[2019-05-08] MEDS: glipiZIDE 5 MG TAB PO SCH (08:22)
[2019-05-08] MEDS: INSULIN ASPART [NOVOLOG] 3 ML PEN SC SCH ×4 (08:28→21:26)
[2019-05-08] MEDS: LEVETIRACETAM 750 MG TAB PO SCH ×2 (08:35→21:19)
[2019-05-08] MEDS: ATENOLOL 50 MG TAB PO SCH ×2 (08:36→21:20)
[2019-05-08] MEDS: LOSARTAN 50 MG TAB PO SCH (08:36)
[2019-05-08] MEDS: MULTIVITAMINS THERAPEUTIC TAB PO SCH (08:37)
[2019-05-08] MEDS: AMLODIPINE 5 MG TAB PO SCH ×2 (08:37→21:19)
[2019-05-08] MEDS: DOCUSATE SODIUM 100 MG CAP PO SCH ×2 (08:37→21:18)
[2019-05-08] MEDS: PHENYTOIN 100 MG CAP PO SCH ×3 (08:37→21:19)
[2019-05-08] MEDS: ASPIRIN 81 MG TAB PO SCH (08:37)
--- NOTE | 2019-05-08 11:11 | CONS ---
Assessment/Plan Assessment/Plan Assessment/Plan (Recall) 83 F c/ prior brain surgery NOS c/b residual aphasia and epilepsy...who presents for evaluation of transient L face weakness. The clinical picture is consistent w/ post-ictal paresis.. MRI brain is reassuringly without obvious acute intracranial pathology. CTA H/N is unrevealing. P: Continue Dilantin indefinitely, to be titrated as needed to goal level 10-20 Continue increased Keppra indefinitely: 750mg bid Ativan iv prn prolonged seizure (> 5 min) OK to continue asa/lipitor for secondary stroke prevention Other medical management and supportive care per primary Consultation Date/Type/Reason Admit Date/Time May 06, 2019 at 09:44 Type of Consult Neurology Reason for Consultation transient face weakness Requesting Provider: TROY SILVER Date/Time of Note DATE: 05/08/19 TIME: 11:09 24 HR Interval Summary Free Text/Dictation s/p Dilantin load Exam/Review of Systems Exam Vitals Vital Signs Date Temp Pulse Resp B/P (MAP) Pulse Ox O2 O2 Flow FiO2 Time Delivery Rate 05/08/19 64 08:00 05/08/19 98.0 20 142/67 96 Nasal 07:30 (92) Cannula 05/05/19 2 04:16 Intake and Output 05/07/19 05/07/19 05/08/19 1515:00 23:00 07:00 IntakeIntake Total 1635 ml OutputOutput Total 154 ml BalanceBalance 1481 ml Results Result Diagram: 05/08/19 0547 05/08/19 0547 Results 24hrs Laboratory Tests Test 05/07/19 13:23 05/07/19 14:29 05/07/19 18:03 05/07/19 20:56 Bedside Glucose 232 H 184 124 Phenytoin (Dilantin) 18.5 Level Test 05/07/19 22:00 05/08/19 05:47 05/08/19 08:21 Urine Color STRAW Urine Clarity CLEAR Urine pH 5.0 Urine Specific 1.005 [place] Urine Ketones NEGATIVE Urine Nitrite NEGATIVE Urine Bilirubin NEGATIVE Urine Urobilinogen NEGATIVE Urine Leukocyte NEGATIVE Esterase Urine Hemoglobin NEGATIVE Urine Glucose NEGATIVE Urine Total Protein NEGATIVE Urine Opiates Screen Negative Urine Barbiturates Negative Urine Amphetamines Negative Screen Urine Negative Benzodiazepines Screen Urine Cocaine Screen Negative Urine Cannabinoids Negative White Blood Count 7.6 # Red Blood Count 4.95 Hemoglobin 10.1 L Hematocrit 33.4 L Mean Corpuscular 67.5 L Volume Mean Corpuscular 20.4 L Hemoglobin Mean Corpuscular 30.2 L Hemoglobin Concent Red Cell 15.4 H Distribution Width Platelet Count 289 Mean Platelet Volume 9.7 Immature 0.300 Granulocytes % Neutrophils % 72.0 Lymphocytes % 15.3 Monocytes % 8.3 Eosinophils % 3.3 Basophils % 0.8 Nucleated Red Blood 0.0 Cells % Immature 0.020 Granulocytes # Neutrophils # 5.5 Lymphocytes # 1.2 Monocytes # 0.6 Eosinophils # 0.3 Basophils # 0.1 Nucleated Red Blood 0.0 Cells # Sodium Level 141 Potassium Level 3.9 Chloride Level 106 Carbon Dioxide Level 24 Anion Gap 11 Blood Urea Nitrogen 18 Creatinine 0.71 Est Glomerular Filtrat Rate mL/min Glucose Level 223 H Calcium Level 8.6 Bedside Glucose 204 Medications Medication Current Medications Amlodipine Besylate (Norvasc) 5 mg BID PO Last administered on 05/08/19 08:37; Admin Dose 5 MG; Start 05/05/19 at 21:00 Aspirin (Aspirin) 81 mg DAILY PO Last administered on 05/08/19 08:37; Admin Dose 81 MG; Start 05/06/19 at 09:00 Atenolol (Tenormin) 50 mg BID PO Last administered on 05/08/19 08:36; Admin Dose 50 MG; Start 05/05/19 at 21:00 Atorvastatin Calcium (Lipitor) 10 mg QHS PO Last administered on 05/07/19 20:53; Admin Dose 10 MG; Start 05/05/19 at 21:00 Docusate Sodium (Colace) 100 mg BID PO Last administered on 05/08/19 08:37; Admin Dose 100 MG; Start 05/05/19 at 21:00 Losartan Potassium (Cozaar) 100 mg DAILY PO Last administered on 05/08/19 08:36; Admin Dose 100 MG; Start 05/06/19 at 09:00 Multivitamins Therapeutic (Theragran) 1 tab DAILY PO Last administered on 05/08/19 08:37; Admin Dose 1 TAB; Start 05/06/19 at 09:00 Senna (Senokot) 2 tab QHS PO Last administered on 6/19/19at 20:54; Admin Dose 2 TAB; Start 05/05/19 at 21:00 Zolpidem Tartrate (Ambien) 5 mg QHS PRN PO INSOMNIA Last administered on 05/07/19at 21:47; Admin Dose 5 MG; Start 05/05/19 at 12:00 Insulin Aspart (Novolog Insulin Pen) NOVOLOG *MILD* ALGORITHM WITH MEALS BEDTIME SC Last administered on 05/08/19 08:28; Admin Dose 2 UNIT; Start 05/05/19 at 11:50 Miscellaneous Information 1 ea NOTE XX ; Start 05/05/19 at 12:00 Glucose (Glutose) 15 gm Q15M PRN PO DECREASED GLUCOSE; Start 05/05/19 at 12:00 Glucose (Glutose) 22.5 gm Q15M PRN PO DECREASED GLUCOSE; Start 05/05/19 at 12:00 Dextrose (D50w Syringe) 25 ml Q15M PRN IV DECREASED GLUCOSE; Start 05/05/19 at 12:00 Dextrose (D50w Syringe) 50 ml Q15M PRN IV DECREASED GLUCOSE; Start 05/05/19 at 12:00 Glucagon (Glucagen) 1 mg Q15M PRN IM DECREASED GLUCOSE; Start 05/05/19 at 12:00 Glucose (Glutose) 15 gm Q15M PRN BUCCAL DECREASED GLUCOSE; Start 05/05/19 at 12:00 Glipizide (Glucotrol) 2.5 mg AC BREAKFAST PO Last administered on 05/08/19at 08:22; Admin Dose 2.5 MG; Start 05/06/19 at 07:25 Levetiracetam (Keppra) 750 mg BID PO Last administered on 05/08/19at 08:35; Admin Dose 750 MG; Start 05/05/19 at 17:00 Phenytoin (Dilantin) 100 mg TID PO Last administered on 05/08/19at 08:37; Admin Dose 100 MG; Start 05/07/19 at 21:00 KAROL SANCHEZ 20, 2019 11:11
--- NOTE | 2019-05-08 15:56 | PN ---
Date/Time of Note Date/Time of Note DATE: 05/08/19 TIME: 15:53 Assessment/Plan VTE Prophylaxis Risk score (from Nsg)>0 risk: 4 SCD applied (from Nsg): Yes Pharmacological prophylaxis: other Lines/Catheters IV Catheter Type (from Nrsg): Peripheral IV Assessment/Plan Hospital Course Patient loaded on IV Dilantin yesterday for breakthrough seizure with postictal paresis, continue Keppra and p.o. Dilantin, monitor Dilantin level, seizure precaution, follow-up neurology recommendation. Assessment/Plan -Epilepsy, continue p.o. Keppra at increased dose, IV Dilantin, Ativan as needed -Post ictal paresis. CT of the brain is negative for acute stroke. MRI of the brain is negative for acute stroke. is following in neurology consultation. Continue aspirin and Keppra. -Hypertension, continue Cozaar, Norvasc and atenolol. -Hyperlipidemia, continue statin. 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 Further recommendations based on clinical course. Plan of care discussed with Dr. Young. Result Diagram: 05/08/19 0547 05/08/19 0547 Results 24hrs Laboratory Tests Test 05/07/19 18:03 05/07/19 20:56 05/07/19 22:00 05/08/19 05:47 Bedside Glucose 184 124 Urine Color STRAW Urine Clarity CLEAR Urine pH 5.0 Urine Specific 1.005 Clute Urine Ketones NEGATIVE Urine Nitrite NEGATIVE Urine Bilirubin NEGATIVE Urine Urobilinogen NEGATIVE Urine Leukocyte NEGATIVE Esterase Urine Hemoglobin NEGATIVE Urine Glucose NEGATIVE Urine Total Protein NEGATIVE Urine Opiates Screen Negative Urine Barbiturates Negative Urine Amphetamines Negative Screen Urine Negative Benzodiazepines Screen Urine Cocaine Screen Negative Urine Cannabinoids Negative White Blood Count 7.6 # Red Blood Count 4.95 Hemoglobin 10.1 L Hematocrit 33.4 L Mean Corpuscular 67.5 L Volume Mean Corpuscular 20.4 L Hemoglobin Mean Corpuscular 30.2 L Hemoglobin Concent Red Cell 15.4 H Distribution Width Platelet Count 289 Mean Platelet Volume 9.7 Immature 0.300 Granulocytes % Neutrophils % 72.0 Lymphocytes % 15.3 Monocytes % 8.3 Eosinophils % 3.3 Basophils % 0.8 Nucleated Red Blood 0.0 Cells % Immature 0.020 Granulocytes # Neutrophils # 5.5 Lymphocytes # 1.2 Monocytes # 0.6 Eosinophils # 0.3 Basophils # 0.1 Nucleated Red Blood 0.0 Cells # Sodium Level 141 Potassium Level 3.9 Chloride Level 106 Carbon Dioxide Level 24 Anion Gap 11 Blood Urea Nitrogen 18 Creatinine 0.71 Est Glomerular Filtrat Rate mL/min Glucose Level 223 H Calcium Level 8.6 Phenytoin (Dilantin) 8.3 L Level Test 05/08/19 08:21 05/08/19 12:05 Bedside Glucose 204 194 Exam/Review of Systems Exam Vitals Vital Signs Date Temp Pulse Resp B/P (MAP) Pulse Ox O2 O2 Flow FiO2 Time Delivery Rate 05/08/19 98.5 57 20 133/60 98 Room Air 15:25 (84) 05/05/19 2 04:16 Intake and Output 05/07/19 05/07/19 05/08/19 1515:00 23:00 07:00 IntakeIntake Total 1635 ml OutputOutput Total 154 ml BalanceBalance 1481 ml Exam Constitutional: alert, oriented Head: normocephalic ENMT: other (Hearing impairment) Neck: supple Respiratory: clear to auscultation Cardiovascular: regular rate and rhythm, other (Left Bundle branch block) Gastrointestinal: soft, non-tender Musculoskeletal: nl extremities to inspection Extremities: normal pulses Neurological: nl mental status, other (Expressive aphasia) Skin: nl turgor Results Results 24hrs Laboratory Tests Test 05/07/19 18:03 05/07/19 20:56 05/07/19 22:00 05/08/19 05:47 Bedside Glucose 184 124 Urine Color STRAW Urine Clarity CLEAR Urine pH 5.0 Urine Specific 1.005 Clute Urine Ketones NEGATIVE Urine Nitrite NEGATIVE Urine Bilirubin NEGATIVE Urine Urobilinogen NEGATIVE Urine Leukocyte NEGATIVE Esterase Urine Hemoglobin NEGATIVE Urine Glucose NEGATIVE Urine Total Protein NEGATIVE Urine Opiates Screen Negative Urine Barbiturates Negative Urine Amphetamines Negative Screen Urine Negative Benzodiazepines Screen Urine Cocaine Screen Negative Urine Cannabinoids Negative White Blood Count 7.6 # Red Blood Count 4.95 Hemoglobin 10.1 L Hematocrit 33.4 L Mean Corpuscular 67.5 L Volume Mean Corpuscular 20.4 L Hemoglobin Mean Corpuscular 30.2 L Hemoglobin Concent Red Cell 15.4 H Distribution Width Platelet Count 289 Mean Platelet Volume 9.7 Immature 0.300 Granulocytes % Neutrophils % 72.0 Lymphocytes % 15.3 Monocytes % 8.3 Eosinophils % 3.3 Basophils % 0.8 Nucleated Red Blood 0.0 Cells % Immature 0.020 Granulocytes # Neutrophils # 5.5 Lymphocytes # 1.2 Monocytes # 0.6 Eosinophils # 0.3 Basophils # 0.1 Nucleated Red Blood 0.0 Cells # Sodium Level 141 Potassium Level 3.9 Chloride Level 106 Carbon Dioxide Level 24 Anion Gap 11 Blood Urea Nitrogen 18 Creatinine 0.71 Est Glomerular Filtrat Rate mL/min Glucose Level 223 H Calcium Level 8.6 Phenytoin (Dilantin) 8.3 L Level Test 05/08/19 08:21 05/08/19 12:05 Bedside Glucose 204 194 Medications Medication Current Medications Amlodipine Besylate (Norvasc) 5 mg BID PO Last administered on 05/08/19 08:37; Admin Dose 5 MG; Start 05/05/19 at 21:00 Aspirin (Aspirin) 81 mg DAILY PO Last administered on 05/08/19 08:37; Admin Dose 81 MG; Start 05/06/19 at 09:00 Atenolol (Tenormin) 50 mg BID PO Last administered on 05/08/19 08:36; Admin Dose 50 MG; Start 05/05/19 at 21:00 Atorvastatin Calcium (Lipitor) 10 mg QHS PO Last administered on 05/07/19 20:53; Admin Dose 10 MG; Start 05/05/19 at 21:00 Docusate Sodium (Colace) 100 mg BID PO Last administered on 05/08/19 08:37; Admin Dose 100 MG; Start 05/05/19 at 21:00 Losartan Potassium (Cozaar) 100 mg DAILY PO Last administered on 05/08/19 08:36; Admin Dose 100 MG; Start 05/06/19 at 09:00 Multivitamins Therapeutic (Theragran) 1 tab DAILY PO Last administered on 05/08/19 08:37; Admin Dose 1 TAB; Start 05/06/19 at 09:00 Senna (Senokot) 2 tab QHS PO Last administered on 05/07/19 20:54; Admin Dose 2 TAB; Start 05/05/19 at 21:00 Zolpidem Tartrate (Ambien) 5 mg QHS PRN PO INSOMNIA Last administered on 05/07/19at 21:47; Admin Dose 5 MG; Start 05/05/19 at 12:00 Insulin Aspart (Novolog Insulin Pen) NOVOLOG *MILD* ALGORITHM WITH MEALS BEDTIME SC Last administered on 05/08/19at 12:16; Admin Dose 2 UNIT; Start 05/05/19 at 11:50 Miscellaneous Information 1 ea NOTE XX ; Start 05/05/19 at 12:00 Glucose (Glutose) 15 gm Q15M PRN PO DECREASED GLUCOSE; Start 05/05/19 at 12:00 Glucose (Glutose) 22.5 gm Q15M PRN PO DECREASED GLUCOSE; Start 05/05/19 at 12:00 Dextrose (D50w Syringe) 25 ml Q15M PRN IV DECREASED GLUCOSE; Start 05/05/19 at 12:00 Dextrose (D50w Syringe) 50 ml Q15M PRN IV DECREASED GLUCOSE; Start 05/05/19 at 12:00 Glucagon (Glucagen) 1 mg Q15M PRN IM DECREASED GLUCOSE; Start 05/05/19 at 12:00 Glucose (Glutose) 15 gm Q15M PRN BUCCAL DECREASED GLUCOSE; Start 05/05/19 at 12:00 Glipizide (Glucotrol) 2.5 mg AC BREAKFAST PO Last administered on 05/08/19at 08:22; Admin Dose 2.5 MG; Start 05/06/19 at 07:25 Levetiracetam (Keppra) 750 mg BID PO Last administered on 05/08/19at 08:35; Admin Dose 750 MG; Start 05/05/19 at 17:00 Phenytoin (Dilantin) 100 mg TID PO Last administered on 05/08/19at 14:30; Admin Dose 100 MG; Start 05/07/19 at 21:00 TROY SILVER May 08, 2019 15:56
[2019-05-08] MEDS: SENNA TAB PO SCH (21:18)
[2019-05-08] MEDS: ATORVASTATIN 10 MG TAB PO SCH (21:19)
[2019-05-09] VITALS: PULSE 59; PULSE 61
[2019-05-09 04:00] VITALS: BP 144/60; PULSE 62; RESP 20
--- NOTE | 2019-05-09 05:40 | PN ---
Date/Time of Note Date/Time of Note DATE: 05/09/19 TIME: 05:38 Assessment/Plan VTE Prophylaxis Risk score (from Nsg)>0 risk: 3 SCD applied (from Nsg): Yes Lines/Catheters IV Catheter Type (from Nrsg): Peripheral IV Assessment/Plan Assessment/Plan -Epilepsy, continue p.o. Keppra at increased dose, IV Dilantin, Ativan as needed -Post ictal paresis. CT of the brain is negative for acute stroke. MRI of the brain is negative for acute stroke. is following in neurology consultation. Continue aspirin and Keppra. -Hypertension, continue Cozaar, Norvasc and atenolol. -Hyperlipidemia, continue statin. 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 Further recommendations based on clinical course. Plan of care discussed with Dr. Young. Result Diagram: 05/08/19 0547 05/08/19 0547 Results 24hrs Laboratory Tests Test 05/08/19 05:47 05/08/19 08:21 05/08/19 12:05 05/08/19 17:40 White Blood Count 7.6 # Red Blood Count 4.95 Hemoglobin 10.1 L Hematocrit 33.4 L Mean Corpuscular 67.5 L Volume Mean Corpuscular 20.4 L Hemoglobin Mean Corpuscular 30.2 L Hemoglobin Concent Red Cell 15.4 H Distribution Width Platelet Count 289 Mean Platelet Volume 9.7 Immature 0.300 Granulocytes % Neutrophils % 72.0 Lymphocytes % 15.3 Monocytes % 8.3 Eosinophils % 3.3 Basophils % 0.8 Nucleated Red Blood 0.0 Cells % Immature 0.020 Granulocytes # Neutrophils # 5.5 Lymphocytes # 1.2 Monocytes # 0.6 Eosinophils # 0.3 Basophils # 0.1 Nucleated Red Blood 0.0 Cells # Sodium Level 141 Potassium Level 3.9 Chloride Level 106 Carbon Dioxide Level 24 Anion Gap 11 Blood Urea Nitrogen 18 Creatinine 0.71 Est Glomerular Filtrat Rate mL/min Glucose Level 223 H Calcium Level 8.6 Phenytoin (Dilantin) 8.3 L Level Bedside Glucose 204 194 172 Test 05/08/19 21:17 Bedside Glucose 186 Exam/Review of Systems Exam Vitals Vital Signs Date Temp Pulse Resp B/P (MAP) Pulse Ox O2 O2 Flow FiO2 Time Delivery Rate 05/09/19 98.7 62 20 144/60 97 04:00 (88) 05/08/19 Room Air 15:25 Intake and Output 05/08/19 05/08/19 05/09/19 1515:00 23:00 07:00 IntakeIntake Total 980 ml 1000 ml OutputOutput Total 800 ml BalanceBalance 980 ml 200 ml Results Results 24hrs Laboratory Tests Test 05/08/19 05:47 05/08/19 08:21 05/08/19 12:05 05/08/19 17:40 White Blood Count 7.6 # Red Blood Count 4.95 Hemoglobin 10.1 L Hematocrit 33.4 L Mean Corpuscular 67.5 L Volume Mean Corpuscular 20.4 L Hemoglobin Mean Corpuscular 30.2 L Hemoglobin Concent Red Cell 15.4 H Distribution Width Platelet Count 289 Mean Platelet Volume 9.7 Immature 0.300 Granulocytes % Neutrophils % 72.0 Lymphocytes % 15.3 Monocytes % 8.3 Eosinophils % 3.3 Basophils % 0.8 Nucleated Red Blood 0.0 Cells % Immature 0.020 Granulocytes # Neutrophils # 5.5 Lymphocytes # 1.2 Monocytes # 0.6 Eosinophils # 0.3 Basophils # 0.1 Nucleated Red Blood 0.0 Cells # Sodium Level 141 Potassium Level 3.9 Chloride Level 106 Carbon Dioxide Level 24 Anion Gap 11 Blood Urea Nitrogen 18 Creatinine 0.71 Est Glomerular Filtrat Rate mL/min Glucose Level 223 H Calcium Level 8.6 Phenytoin (Dilantin) 8.3 L Level Bedside Glucose 204 194 172 Test 05/08/19 21:17 Bedside Glucose 186 Medications Medication Current Medications Amlodipine Besylate (Norvasc) 5 mg BID PO Last administered on 05/08/19at 21:19; Admin Dose 5 MG; Start 05/05/19 at 21:00 Aspirin (Aspirin) 81 mg DAILY PO Last administered on 05/08/19at 08:37; Admin Dose 81 MG; Start 05/06/19 at 09:00 Atenolol (Tenormin) 50 mg BID PO Last administered on 05/08/19at 21:20; Admin Dose 50 MG; Start 05/05/19 at 21:00 Atorvastatin Calcium (Lipitor) 10 mg QHS PO Last administered on 05/08/19 21:19; Admin Dose 10 MG; Start 05/05/19 at 21:00 Docusate Sodium (Colace) 100 mg BID PO Last administered on 05/08/19 21:18; Admin Dose 100 MG; Start 05/05/19 at 21:00 Losartan Potassium (Cozaar) 100 mg DAILY PO Last administered on 05/08/19 08:36; Admin Dose 100 MG; Start 05/06/19 at 09:00 Multivitamins Therapeutic (Theragran) 1 tab DAILY PO Last administered on 05/08/19 08:37; Admin Dose 1 TAB; Start 05/06/19 at 09:00 Senna (Senokot) 2 tab QHS PO Last administered on 05/08/19 21:18; Admin Dose 2 TAB; Start 05/05/19 at 21:00 Zolpidem Tartrate (Ambien) 5 mg QHS PRN PO INSOMNIA Last administered on 05/07/19 21:47; Admin Dose 5 MG; Start 05/05/19 at 12:00 Insulin Aspart (Novolog Insulin Pen) NOVOLOG *MILD* ALGORITHM WITH MEALS BEDTIME SC Last administered on 05/08/19 21:26; Admin Dose 1 UNIT; Start 05/05/19 at 11:50 Miscellaneous Information 1 ea NOTE XX ; Start 05/05/19 at 12:00 Glucose (Glutose) 15 gm Q15M PRN PO DECREASED GLUCOSE; Start 05/05/19 at 12:00 Glucose (Glutose) 22.5 gm Q15M PRN PO DECREASED GLUCOSE; Start 05/05/19 at 12:00 Dextrose (D50w Syringe) 25 ml Q15M PRN IV DECREASED GLUCOSE; Start 05/05/19 at 12:00 Dextrose (D50w Syringe) 50 ml Q15M PRN IV DECREASED GLUCOSE; Start 05/05/19 at 12:00 Glucagon (Glucagen) 1 mg Q15M PRN IM DECREASED GLUCOSE; Start 05/05/19 at 12:00 Glucose (Glutose) 15 gm Q15M PRN BUCCAL DECREASED GLUCOSE; Start 05/05/19 at 12:00 Glipizide (Glucotrol) 2.5 mg AC BREAKFAST PO Last administered on 05/08/19at 08:22; Admin Dose 2.5 MG; Start 05/06/19 at 07:25 Levetiracetam (Keppra) 750 mg BID PO Last administered on 05/08/19at 21:19; Admin Dose 750 MG; Start 05/05/19 at 17:00 Phenytoin (Dilantin) 100 mg TID PO Last administered on 05/08/19at 21:19; Admin Dose 100 MG; Start 05/07/19 at 21:00 TONIO FULTON May 09, 2019 05:40
[2019-05-09 07:21] VITALS: BP 149/70; PULSE 53; RESP 20
[2019-05-09] MEDS: glipiZIDE 5 MG TAB PO SCH (08:02)
[2019-05-09] MEDS: MULTIVITAMINS THERAPEUTIC TAB PO SCH (08:29)
[2019-05-09] MEDS: LEVETIRACETAM 750 MG TAB PO SCH (08:30)
[2019-05-09] MEDS: DOCUSATE SODIUM 100 MG CAP PO SCH (08:30)
[2019-05-09] MEDS: AMLODIPINE 5 MG TAB PO SCH (08:30)
[2019-05-09] MEDS: LOSARTAN 50 MG TAB PO SCH (08:30)
[2019-05-09] MEDS: ATENOLOL 50 MG TAB PO SCH (08:31)
[2019-05-09] MEDS: ASPIRIN 81 MG TAB PO SCH (08:31)
[2019-05-09] MEDS: PHENYTOIN 100 MG CAP PO SCH ×2 (08:31→14:14)
[2019-05-09 08:34] VITALS: PULSE 59
[2019-05-09] MEDS: INSULIN ASPART [NOVOLOG] 3 ML PEN SC SCH ×2 (08:35→12:18)
--- NOTE | 2019-05-09 10:56 | CONS ---
Assessment/Plan Assessment/Plan Assessment/Plan (Recall) 83 F c/ prior brain surgery NOS c/b residual aphasia and epilepsy...who presents for evaluation of transient L face weakness. The clinical picture is consistent w/ post-ictal paresis.. Now s/p increased Keppra, and ultimately Dilantin load.. MRI brain is reassuringly without obvious acute intracranial pathology. CTA H/N is unrevealing. P: Neurologically cleared for discharge when medically able Continue Dilantin indefinitely: 100mg tid Continue increased Keppra indefinitely: 750mg bid Ativan iv prn prolonged seizure (> 5 min) OK to continue asa/lipitor for secondary stroke prevention Other medical management and supportive care per primary Consultation Date/Type/Reason Admit Date/Time May 06, 2019 at 09:44 Type of Consult Neurology Reason for Consultation transient face weakness Requesting Provider: TROY SILVER Date/Time of Note DATE: 05/09/19 TIME: 10:54 24 HR Interval Summary Free Text/Dictation Continues acute care Exam/Review of Systems Exam Vitals Vital Signs Date Temp Pulse Resp B/P (MAP) Pulse Ox O2 O2 Flow FiO2 Time Delivery Rate 05/09/19 59 08:34 05/09/19 98.2 20 149/70 95 Room Air 07:21 (96) Intake and Output 05/08/19 05/08/19 05/09/19 1515:00 23:00 07:00 IntakeIntake Total 980 ml 1000 ml OutputOutput Total 800 ml BalanceBalance 980 ml 200 ml Results Result Diagram: 05/09/19 0611 05/09/19 0611 Results 24hrs Laboratory Tests Test 05/08/19 12:05 05/08/19 17:40 05/08/19 21:17 05/09/19 06:11 Bedside Glucose 194 172 186 White Blood Count 5.3 # Red Blood Count 4.82 Hemoglobin 9.8 L Hematocrit 32.6 L Mean Corpuscular 67.6 L Volume Mean Corpuscular 20.3 L Hemoglobin Mean Corpuscular 30.1 L Hemoglobin Concent Red Cell 15.2 H Distribution Width Platelet Count 286 Mean Platelet Volume 9.6 Immature 0.400 Granulocytes % Neutrophils % 61.6 Lymphocytes % 23.1 Monocytes % 9.3 Eosinophils % 4.7 Basophils % 0.9 Nucleated Red Blood 0.0 Cells % Immature 0.020 Granulocytes # Neutrophils # 3.2 Lymphocytes # 1.2 Monocytes # 0.5 Eosinophils # 0.3 Basophils # 0.1 Nucleated Red Blood 0.0 Cells # Sodium Level 142 Potassium Level 3.8 Chloride Level 107 Carbon Dioxide Level 27 Anion Gap 8 Blood Urea Nitrogen 15 Creatinine 0.67 Est Glomerular Filtrat Rate mL/min Glucose Level 161 Calcium Level 8.8 Phenytoin (Dilantin) 13.4 Level Test 05/09/19 08:00 Bedside Glucose 182 Medications Medication Current Medications Amlodipine Besylate (Norvasc) 5 mg BID PO Last administered on 05/09/19 08:30; Admin Dose 5 MG; Start 05/05/19 at 21:00 Aspirin (Aspirin) 81 mg DAILY PO Last administered on 05/09/19 08:31; Admin Do se 81 MG; Start 05/06/19 at 09:00 Atenolol (Tenormin) 50 mg BID PO Last administered on 05/08/19 21:20; Admin Dose 50 MG; Start 05/05/19 at 21:00 Atorvastatin Calcium (Lipitor) 10 mg QHS PO Last administered on 05/08/19 21:19; Admin Dose 10 MG; Start 05/05/19 at 21:00 Docusate Sodium (Colace) 100 mg BID PO Last administered on 05/09/19 08:30; Admin Dose 100 MG; Start 05/05/19 at 21:00 Losartan Potassium (Cozaar) 100 mg DAILY PO Last administered on 05/09/19 08:30; Admin Dose 100 MG; Start 05/06/19 at 09:00 Multivitamins Therapeutic (Theragran) 1 tab DAILY PO Last administered on 08:29; Admin Dose 1 TAB; Start 05/06/19 at 09:00 Senna (Senokot) 2 tab QHS PO Last administered on 05/08/19 21:18; Admin Dose 2 TAB; Start 05/05/19 at 21:00 Zolpidem Tartrate (Ambien) 5 mg QHS PRN PO INSOMNIA Last administered on 05/07/19 21:47; Admin Dose 5 MG; Start 05/05/19 at 12:00 Insulin Aspart (Novolog Insulin Pen) NOVOLOG *MILD* ALGORITHM WITH MEALS BEDTIME SC Last administered on 05/09/19at 08:35; Admin Dose 2 UNIT; Start 05/05/19 at 11:50 Miscellaneous Information 1 ea NOTE XX ; Start 05/05/19 at 12:00 Glucose (Glutose) 15 gm Q15M PRN PO DECREASED GLUCOSE; Start 05/05/19 at 12:00 Glucose (Glutose) 22.5 gm Q15M PRN PO DECREASED GLUCOSE; Start 05/05/19 at 12:00 Dextrose (D50w Syringe) 25 ml Q15M PRN IV DECREASED GLUCOSE; Start 05/05/19 at 12:00 Dextrose (D50w Syringe) 50 ml Q15M PRN IV DECREASED GLUCOSE; Start 05/05/19 at 12:00 Glucagon (Glucagen) 1 mg Q15M PRN IM DECREASED GLUCOSE; Start 05/05/19 at 12:00 Glucose (Glutose) 15 gm Q15M PRN BUCCAL DECREASED GLUCOSE; Start 05/05/19 at 12:00 Glipizide (Glucotrol) 2.5 mg AC BREAKFAST PO Last administered on 05/09/19at 08:02; Admin Dose 2.5 MG; Start 05/06/19 at 07:25 Levetiracetam (Keppra) 750 mg BID PO Last administered on 05/09/19at 08:30; Admin Dose 750 MG; Start 05/05/19 at 17:00 Phenytoin (Dilantin) 100 mg TID PO Last administered on 05/09/19at 08:31; Admin Dose 100 MG; Start 05/07/19 at 21:00 KAROL SANCHEZ May 09, 2019 10:56
[2019-05-09 11:08] VITALS: BP 169/79; PULSE 65; RESP 20
[2019-05-09 13:07] VITALS: PULSE 63
--- NOTE | 2019-05-09 16:12 | DS ---
Date/Time of Note Date/Time of Note DATE: 05/09/19 TIME: 16:08 Discharge Summary Admission/Discharge Info Admit Date/Time May 06, 2019 at 09:44 Discharge Date/Time Discharge Diagnosis -Epilepsy, continue p.o. Keppra at increased dose, IV Dilantin, Ativan as needed -Post ictal paresis. CT of the brain is negative for acute stroke. MRI of the brain is negative for acute stroke. is following in neurology consultation. Continue aspirin and Keppra. -Hypertension, continue Cozaar, Norvasc and atenolol. -Hyperlipidemia, continue statin. 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 discussed with Dr. Young. Patient Condition: Stable Hospital Course The patient is 83-year-old female with history of surgery in 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 Patient was brought from [facility] facility for facial droop noticed and patient woke up at 1:30 AM patient went to bed at [address] of the brain which was negative for acute stroke. Patient's symptoms improved after returning from CT scan. Patient was evaluated by tele-neurologist Dr. Tanner. TPA was considered but not recommended given the patient presenting outside the eligibility window. Patient had TIA 3 weeks ago. Patient is admitted for further evaluation and management. During the examination patient is nonverbal and has hearing impairment however follows commands. No fever nausea vomiting, no shortness of breath and no chest pain were reported. discussed with Dr. Young. Constitutional: alert, oriented Head: normocephalic ENMT: other (Hearing impairment) Neck: supple Respiratory: clear to auscultation Cardiovascular: regular rate and rhythm, other (Left Bundle branch block) Gastrointestinal: soft, non-tender Musculoskeletal: nl extremities to inspection Extremities: normal pulses Neurological: nl mental status, other (Expressive aphasia) Skin: nl turgor Home Meds Reported Medications Sennosides* (Senna Lax*) 8.6 Mg Tablet, 2 TAB PO QHS, TAB 05/05/19 Multivitamins* (Theragran*) 1 Tab Tab, 1 TAB PO DAILY, TAB 05/05/19 Metformin HCl (Metformin HCl ER) 500 Mg [id number], 500 MG PO, TAB 05/05/19 Losartan Potassium* (Losartan Potassium*) 100 Mg Tablet, 100 MG PO DAILY, TAB 05/05/19 Atorvastatin Calcium (Atorvastatin Calcium) 10 Mg Tablet, 10 MG PO QHS, #30 TAB 05/05/19 Levetiracetam* (Levetiracetam*) 500 Mg Tablet, 500 MG PO BID, TAB 05/05/19 Insulin Human Regular (Novolin-R U-100) 100 Unit/Ml Soln, 0-12 UNITS SC PER SLIDING SCALE, EA 05/05/19 Glipizide* (Glipizide*) 5 Mg Tablet, 2.5 MG PO AC BREAKFAST BEDTIME, TAB 05/05/19 Docusate Sodium* (Docusate Sodium*) 100 Mg Capsule, 100 MG PO BID, #60 CAP 05/05/19 Atenolol* (Atenolol*) 50 Mg Tablet, 50 MG PO BID, #60 TAB 05/05/19 Aspirin* (Aspirin* Chew) 81 Mg Tab.chew, 81 MG PO DAILY, TAB.CHEW 05/05/19 Amlodipine Besylate* (Norvasc*) 5 Mg Tablet, 5 MG PO BID, TAB 05/05/19 Zolpidem Tartrate* (Ambien*) 5 Mg Tablet, 5 MG PO QHS PRN for INSOMNIA, #30 TAB 05/05/19 Acetaminophen* (Acetaminophen*) 650 Mg Tablet, 650 MG PO Q6H PRN for PAIN AND OR ELEVATED TEMP, #30 TAB 05/05/19 Discontinued Reported Medications Simvastatin* (Simvastatin*) 5 Mg Tablet, 5 MG PO HS, TAB 02/27/15 Metformin* (Glucophage*) 500 Mg Tab, 500 MG PO WITH MEALS, TAB 02/27/15 Losartan Potassium* (Losartan Potassium*) 25 Mg Tablet, 25 MG PO DAILY, TAB 02/27/15 Levetiracetam* (Levetiracetam*) 500 Mg Tablet, 500 MG PO BID, TAB 02/27/15 Amlodipine Besylate* (Amlodipine Besylate*) 2.5 Mg Tablet, 2.5 MG PO DAILY, TAB 02/27/15 Primary Care Provider Not On Staff Doctor Pending Labs Laboratory Tests Test 05/08/19 17:40 05/08/19 21:17 05/09/19 06:11 05/09/19 08:00 Bedside 172 186 182 Glucose mg/dL (70-220) mg/dL (70-220) mg/dL (70-220) White Blood 5.3 Count 10^3/ul (4.8-1 0.8) Red Blood 4.82 Count 10^6/ul (4.20- 5.40) Hemoglobin 9.8 g/dl (12.0-16. 0) Hematocrit 32.6 % (37.0-47.0) Mean 67.6 Corpuscular fl (82.0-101.0 Volume ) Mean 20.3 Corpuscular pg (29.0-33.0) Hemoglobin Mean 30.1 Corpuscular g/dl (32.0-37. Hemoglobin Conc 0) ent Red Cell 15.2 Distribution % (11.5-14.5) Width Platelet Count 286 10^3/UL (140-4 15) Mean Platelet 9.6 Volume fl (7.4-10.4) Immature 0.400 Granulocytes % % (0.001-0.429 ) Neutrophils % 61.6 % (39.0-77.0) Lymphocytes % 23.1 % (15.0-51.0) Monocytes % 9.3 % (0.0-11.0) Eosinophils % 4.7 % (0.0-7.0) Basophils % 0.9 % (0.0-2.0) Nucleated Red 0.0 Blood Cells % /100WBC (0.0-0 .0) Immature 0.020 Granulocytes # 10^3/ul (0.0-0 .031) Neutrophils # 3.2 10^3/ul (1.6-7 .5) Lymphocytes # 1.2 10^3/ul (0.8-2 .9) Monocytes # 0.5 10^3/ul (0.3-0 .9) Eosinophils # 0.3 10^3/ul (0.0-0 .5) Basophils # 0.1 10^3/ul (0.0-0 .1) Nucleated Red 0.0 Blood Cells # 10^3/ul (0.0-0 .0) Sodium Level 142 mmol/L (135-14 4) Potassium 3.8 Level mmol/L (3.5-5. 1) Chloride Level 107 mmol/L (97-110 ) Carbon Dioxide 27 Level mmol/L (21-31) Anion Gap 8 (5-13) Blood Urea 15 Nitrogen mg/dl (7-20) Creatinine 0.67 mg/dl (0.44-1. 00) Est Glomerular mL/min (>60) Filtrat Rate mL/min Glucose Level 161 mg/dl (70-220) Calcium Level 8.8 mg/dl (8.4-10. 2) Phenytoin 13.4 (Dilantin) ug/ml (10.0-20 Level .0) Test 05/09/19 12:03 Bedside 189 Glucose mg/dL (70-220) TONIO FULTON May 09, 2019 16:12
--- NOTE | 2019-05-09 16:13 | PDOCDIS ---
Discharge Instructions CONDITION [id number] Patient Condition: [id number] Stable HOME CARE INSTRUCTIONS: [id number] Diet Instructions: [id number] ACTIVITY: [id number] Activity Restrictions: [id number] Slowly Increase Activity Rest between Activity Avoid heavy lifting Do not operate Machinery [id number] Bathing Restrictions: [id number] Sponge Bath ( ) FOLLOW UP/APPOINTMENTS Follow-up Plan FU with PMD x 1 week FU with ortho MD as recommended Call 911 or go to the nearest hospital if symptoms get worse- patient verbalized understanding discharge instructions TONIO FULTON May 09, 2019 14:15
--- NOTE | 2019-05-09 17:56 | CONS ---
DATE OF ADMISSION: 05/06/2019 DATE OF CONSULTATION: 05/09/2019 TYPE OF CONSULTATION: Cardiology. REASON FOR CONSULTATION: Abnormal electrocardiogram, assess for acute coronary syndrome, rule out he art block. REQUESTING PHYSICIAN: Parvez Lares MD HISTORY OF PRESENT ILLNESS: Ms. William is an 83-year-old female with a history of seizure disorder, speech impairment, hypertension, dyslipidemia, diabetes mellitus, who was brought from her chronic ca re facility for facial droop. Initially upon arrival on 05/05/2019, temperature was 98.6, blood pres sure 181/88, pulse 69, respiratory rate 19, satting 99%. The patient's labs are notable for a white blood cell count of 7.1, hemoglobin 10.8, platelet count of 333, sodium 142, potassium 4.5, creatinin e 0.7, BUN 16, troponin negative, LDL 73, HDL 53, triglycerides 158, INR 0.87. Tox screen negative. UA negative. The patient underwent a brain CT initially revealing no acute intracranial change, lef t frontal and temporal encephalomalacia, status post left frontotemporoparietal craniotomy, mild to m oderate generalized parenchymal volume loss; a chest x-ray that revealed a stable mild cardiomegaly, calcified aortic sclerosis, no acute process noted in the chest; a head CTA revealing no flow limitin g intracranial stenosis or aneurysm, left intracranial stenosis, bilateral extracranial internal uribe tid arteries; a neck CTA revealing focal calcified plaque located in the proximal right vertebral art kelly less than 50% and a brain MRI subsequently that revealed no acute intracranial findings, no evide nce of acute infarct, peripheral volume loss, 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 The joan garcia's electrocardiogram revealed wide complex rhythm with baseline artifact, left bundle branch blo ck pattern likely sinus rhythm with baseline left bundle branch block, secondary repolarization abnor malities. The patient was subsequently admitted to the floor and since admit to floor has been monit ored on telemetry revealing ongoing sinus rhythm, no significant arrhythmias, some bradycardias to th e 50s and has been in sinus rhythm. The patient's blood pressures have been somewhat labile up to th e 160s and the patient has been placed on losartan, atenolol and Norvasc. The patient has had atenol ol held several times due to bradycardias. The patient has been evaluated by the neurology service a nd has been treated with Dilantin and Keppra as well as aspirin. PAST MEDICAL HISTORY: As above in HPI. MEDICATIONS CURRENTLY IN HOSPITAL: 1. Dilantin 100 mg t.i.d. 2. Aspirin 81 mg daily. 3. Losartan 100 mg daily. 4. Glipizide. 5. Norvasc 5 mg b.i.d. 6. Atenolol 50 mg p.o. b.i.d. 7. Lipitor 10 mg at bedtime. 8. Colace. 9. Senna. 10. Keppra 750 mg b.i.d. 11. Insulin sliding scale. ALLERGIES 1. PENICILLIN. 2. . SOCIAL HISTORY: No current tobacco, EtOH or illicit drug use. FAMILY HISTORY: No history of sudden cardiac or early CAD. REVIEW OF SYSTEMS: As above in HPI. CONSTITUTIONAL: No fevers, chills. PULMONARY: No current shortness of breath. CARDIOVASCULAR: No current chest pain. GASTROINTESTINAL: No vomiting. GENITOURINARY: No hematuria. MUSCULOSKELETAL: Degenerative joint disease. PSYCHIATRIC: The patient has depression. NEUROLOGIC: No documented CVA. GASTROINTESTINAL: No nausea, vomiting. GENITOURINARY: No hematuria, dysuria. MUSCULOSKELETAL: Degenerative joint disease. PSYCHIATRIC: No documented psych history. NEUROLOGICAL: History of CVA, history of encephalomalacia, history of speech impediment. PHYSICAL EXAMINATION VITAL SIGNS: Temperature of 98, blood pressure most recently 169/79, pulse of 65, respiratory rate 2 0, satting 94%. GENERAL: The patient is alert, awake with speech impediment, inability to converse with words. NECK: JVP is approximately 8 cm of water. CHEST: Fair air movement throughout. HEART: Regular rate and rhythm. Normal S1, S2, I/ systolic murmur. Nondisplaced PMI. ABDOMEN: Positive bowel sounds, soft. EXTREMITIES: No significant pitting edema, 1+ pulses bilateral posterior tibial. LABORATORY DATA: Most recently from today, sodium 142, potassium 3.8, creatinine 0.6, BUN 15. White blood cell count 5.3, hemoglobin 9.8, platelet count of 286. UA negative. IMAGING STUDIES: As above in HPI. No further imaging studies for my review at this time. ELECTROCARDIOGRAM: As above in HPI. No further electrocardiograms for my review at this time. IMPRESSION: 1. Abnormal electrocardiogram with left bundle branch block pattern. No signs of acute coronary syn drome at this time. Negative troponin x1. 2. Hypertension, mildly uncontrolled. 3. Bradycardia, intermittent consistent with sinus bradycardia. No higher levels of block at this t shorty. 4. Rule out transient ischemic attack, acute cerebrovascular accident which has been ruled out at th is time. Neurology is following. 5. Speech impediment, status post prior craniotomy. 6. Status post prior cerebrovascular accident. 7. Diabetes mellitus. 8. History of seizure disorder. RECOMMENDATIONS: 1. At this time, we would maintain the patient on telemetry monitoring to follow rhythm and rate con trol closely. 2. Continue the patient's current antihypertensives with Norvasc, losartan and we will decrease the patient's dose of atenolol until can better tolerate and likely initiate patient on hydralazine to im prove overall systolic blood pressure control. 3. Check a 2D echo for this patient's ejection fraction, wall motion, rule out any structural heart disease in the setting of left bundle block pattern on EKG. 4. Complete the patient's rule out of myocardial infarction to assure that the patient's EKG abnorma lities are chronic in nature and not due to recent acute coronary syndromes. 5. Continue the patient's baseline aspirin for prevention of cardiovascular events. 6. Continue the patient's Dilantin and Keppra for seizure prophylaxis. 7. Ongoing neurologic followup. 8. Follow the patient's blood sugars closely. Thank you for allowing me to take part in the care of this patient. I will continue to follow her al denisha very closely with you with further recommendations to be made as the patient progresses through h er inpatient hospital clinical course. Dictated By: ANA PAULA BRYAN/NTS Conf#: [id number] DID#: [id number] CC: PARVEZ LARES MD;*EndCC*
[2019-05-09] MEDS ORDERED: ATENOLOL 25 MG TAB PO SCH (21:00)
== END 2019-05-09 17:00 | DRG 101 ==
LOC: E/R 03:50 → TEL 05:33 → EDBEDREQ 08:40 → OBSVTOIN 05-06 09:44
PROVIDERS: ADMIT Internal Medicine; ATTEND Internal Medicine
DX: G40.909 Epilepsy, unspecified, not intractable, without status epilepticus (principal); R47.01 Aphasia; G83.84 Todd's paralysis (postepileptic); I10 Essential (primary) hypertension; D56.9 Thalassemia, unspecified; E78.5 Hyperlipidemia, unspecified; E11.9 Type 2 diabetes mellitus without complications; H91.90 Unspecified hearing loss, unspecified ear; R00.1 Bradycardia, unspecified; Z79.84 Long term (current) use of oral hypoglycemic drugs; Z88.0 Allergy status to penicillin; Z86.73 Personal history of transient ischemic attack (TIA), and cerebral infarction without residual deficits; Z79.82 Long term (current) use of aspirin
CPT/HCPCS: 70450; 70496; 70498; 70551; 71045; 80048; 80061; 80185; 80307; 81003; 82550; 82553; 82962; 83036; 84484; 85025; 85610; 85730; 92610; 93005; 97116; 97161; 97167; 97530; G0378; A4310; J1165; J1815; Q9967